=== PATIENT | male | born 1960 | race Caucasian/White ===

== ENCOUNTER 2019-11-10 19:51 | Emergency (ER) | payer OTHER ==
[2019-11-10] MEDS ORDERED: ONDANSETRON HCL 4 MG/2 ML VIAL ONE (20:25)
[2019-11-10] MEDS ORDERED: LEVOFLOXACIN 750 MG/D5W 150 ML 150 ML ONE (20:25)
[2019-11-10] MEDS ORDERED: MORPHINE SULFATE 4 MG/1ML SYG ONE (20:25)
[2019-11-10 20:50] LABS: APPEARANCE,URINE Clear (CLEAR); BILIRUBIN,URINE Negative (NEGATIVE); COLOR,URINE Yellow (YELLOW); GLUCOSE, URINE (UA) Negative (NEGATIVE); KETONES,URINE Negative (NEGATIVE); LEUKOCYTE ESTERASE ,URINE Negative (NEGATIVE); NITRATE,URINE Negative (NEGATIVE); OCCULT BLOOD,URINE Negative (NEGATIVE); PROTEIN,URINE POS 2+ mg/dL (NEGATIVE); UROBILINOGEN,URINE 0.2 mg/dL (0.2-1.0)
[2019-11-10 20:54] LABS: BASOPHILS % (AUTO) 0.4 % (0.0-5.0); EOSINOPHILS % (AUTO) 1.6 % (0.0-8.0); HEMATOCRIT 26.8 % (42-54); LYMPHOCYTES % (AUTO) 28.1 % (21.0-51.0); MEAN CORPUSCULAR HEMOGLOBIN 30.3 pg (27.0-33.0); MEAN CORPUSCULAR HGB CONC 33.6 g/dL (32.0-36.0); MEAN CORPUSCULAR VOLUME 90.2 fL (79-99); MONOCYTES % (AUTO) 10.4 % (3.0-13.0); NEUTROPHILS % (AUTO) 58.7 % (40.0-77.0); PLATELET COUNT (AUTO) 222 K/uL (130-400); RED BLOOD CELL COUNT(AUTO) 2.97 MIL/uL (4.50-6.20); RED CELL DISTRIBUTION WIDTH 16.7 % (11.0-15.5)
[2019-11-10 21:04] LABS: BACTERIA,URINE None Seen /HPF (None Seen); MUCUS,URINE Few LPF (None Seen); RBC,URINE 0-1 /HPF (0-1); SQUAMOUS EPITHELIAL CELL,UR 0-2 /HPF (0-2); WBC,URINE 0-1 /HPF (0-1)
[2019-11-10 21:08] LABS: ALBUMIN 2.6 g/dL (3.5-5.0); BILIRUBIN,TOTAL 0.7 mg/dL (0.2-1.0); CREATININE 2.1 mg/dL (0.5-1.5); TOTAL PROTEIN, SERUM 6.1 g/dL (6.0-8.3)
[2019-11-10 21:09] LABS: POTASSIUM 2.5 mmol/L (3.5-5.1)
[2019-11-10] MEDS ORDERED: POTASSIUM CHLORIDE 20 MEQ ERTAB PO ONE (21:14)
[2019-11-10 21:17] LABS: B-TYPE NATRIURETIC PEPTIDE 179 pg/mL (0-100)
[2019-11-10] MEDS ORDERED: ACETAMINOPHEN EXTRA STRENGTH 500 MG TABLET ONE (21:17)
== END 2019-11-10 23:05 | disposition home or self-care (01) ==
LOC: EDH 19:51
DX: E87.6 Hypokalemia (principal); R53.1 Weakness; R05 Cough; R06.02 Shortness of breath; Z20.828 Contact with and (suspected) exposure to other viral communicable diseases; N18.6 End stage renal disease; E03.9 Hypothyroidism, unspecified; Z88.1 Allergy status to other antibiotic agents
CPT/HCPCS: 36415; 71045; 80053; 81001; 83880; 85025; 87040 ×2; 87426; 96365; 96366; 96375; 99284; J1956; J2270; J2405; J7030; U0003

== ENCOUNTER 2019-11-27 17:28 | Emergency (ER) | payer OTHER | END 2019-11-27 23:45 | disposition home or self-care (01) | LOC: EDH 17:28 | DX: R07.89 Other chest pain (principal); R20.2 Paresthesia of skin; I10 Essential (primary) hypertension; E03.9 Hypothyroidism, unspecified; N18.6 End stage renal disease; Z87.891 Personal history of nicotine dependence; Z88.0 Allergy status to penicillin | CPT/HCPCS: 36415; 70450; 70544; 70547; 70551; 71045; 80053; 80305; 81001; 82550; 82948; 83721; 84484; 85025; 85610; 85730; 93005; 99291 ==

== ENCOUNTER 2019-12-24 10:17 | Emergency (ER) | payer OTHER ==
[2019-12-24 10:45] LABS: BASOPHILS % (AUTO) 0.4 % (0.0-5.0); EOSINOPHILS % (AUTO) 13.1 % (0.0-8.0); HEMATOCRIT 32.1 % (42-54); LYMPHOCYTES % (AUTO) 24.5 % (21.0-51.0); MEAN CORPUSCULAR HEMOGLOBIN 32.4 pg (27.0-33.0); MEAN CORPUSCULAR HGB CONC 34.6 g/dL (32.0-36.0); MEAN CORPUSCULAR VOLUME 93.6 fL (79-99); MONOCYTES % (AUTO) 7.7 % (3.0-13.0); NEUTROPHILS % (AUTO) 53.7 % (40.0-77.0); PLATELET COUNT (AUTO) 43 K/uL (130-400); RED BLOOD CELL COUNT(AUTO) 3.43 MIL/uL (4.50-6.20); RED CELL DISTRIBUTION WIDTH 15.4 % (11.0-15.5); WHITE BLOOD COUNT (AUTO) 4.7 K/uL (4.8-10.8)
[2019-12-24 10:55] LABS: CREATININE 2.3 mg/dL (0.5-1.5); POTASSIUM 3.3 mmol/L (3.5-5.1)
[2019-12-24 11:00] LABS: BILIRUBIN,TOTAL 0.5 mg/dL (0.2-1.0)
[2019-12-24 14:11] LABS: APPEARANCE,URINE Clear (CLEAR); BILIRUBIN,URINE Negative (NEGATIVE); COLOR,URINE Yellow (YELLOW); GLUCOSE, URINE (UA) Negative (NEGATIVE); KETONES,URINE Negative (NEGATIVE); LEUKOCYTE ESTERASE ,URINE Negative (NEGATIVE); NITRATE,URINE Negative (NEGATIVE); OCCULT BLOOD,URINE Negative (NEGATIVE); PH,URINE 6.5 (5.0-8.0); PROTEIN,URINE POS 2+ mg/dL (NEGATIVE)
[2019-12-24 14:34] LABS: BACTERIA,URINE None Seen /HPF (None Seen); RBC,URINE 0-1 /HPF (0-1); SQUAMOUS EPITHELIAL CELL,UR None Seen /HPF (0-2); WBC,URINE 0-1 /HPF (0-1)
[2019-12-24] MEDS ORDERED: POTASSIUM CHLORIDE 20 MEQ ERTAB PO ONE (16:48)
== END 2019-12-24 16:56 | disposition home or self-care (01) ==
LOC: EDH 10:17
DX: M79.10 Myalgia, unspecified site (principal); D69.59 Other secondary thrombocytopenia; C90.00 Multiple myeloma not having achieved remission; E03.9 Hypothyroidism, unspecified; N18.6 End stage renal disease; Z88.0 Allergy status to penicillin; Z88.8 Allergy status to other drugs, medicaments and biological substances
CPT/HCPCS: 36415; 70450; 71045; 80053; 81001; 83605; 85025; 86850; 86900; 86901

== ENCOUNTER 2020-02-10 11:59 | Inpatient (IN) | payer OTHER ==
[~2020-02-10] VITALS: Ht 177.8 cm; Wt 94.8 kg
[2020-02-10] MEDS ORDERED: ONDANSETRON HCL 4 MG/2 ML VIAL ONE (12:51)
[2020-02-10] MEDS ORDERED: HYDROMORPHONE HCL 0.5 MG/0.5 ML ML ONE (12:52)
[2020-02-10 13:16] LABS: APPEARANCE,URINE Clear (CLEAR); BILIRUBIN,URINE Negative (NEGATIVE); COLOR,URINE Yellow (YELLOW); GLUCOSE, URINE (UA) Negative (NEGATIVE); KETONES,URINE Negative (NEGATIVE); LEUKOCYTE ESTERASE ,URINE Negative (NEGATIVE); NITRATE,URINE Negative (NEGATIVE); OCCULT BLOOD,URINE Negative (NEGATIVE); PROTEIN,URINE POS 2+ mg/dL (NEGATIVE)
[2020-02-10 13:32] LABS: POTASSIUM 3.3 mmol/L (3.5-5.1)
[2020-02-10 13:36] LABS: BILIRUBIN,TOTAL 0.4 mg/dL (0.2-1.0)
[2020-02-10 13:37] LABS: BASOPHILS % (AUTO) 0.4 % (0.0-5.0); EOSINOPHILS % (AUTO) 5.6 % (0.0-8.0); HEMATOCRIT 29.6 % (42-54); LYMPHOCYTES % (AUTO) 26.3 % (21.0-51.0); MEAN CORPUSCULAR HEMOGLOBIN 33.2 pg (27.0-33.0); MEAN CORPUSCULAR HGB CONC 32.4 g/dL (32.0-36.0); MEAN CORPUSCULAR VOLUME 102.4 fL (79-99); MONOCYTES % (AUTO) 12.4 % (3.0-13.0); NEUTROPHILS % (AUTO) 54.6 % (40.0-77.0); PLATELET COUNT (AUTO) 109 K/uL (130-400); RED BLOOD CELL COUNT(AUTO) 2.89 MIL/uL (4.50-6.20); RED CELL DISTRIBUTION WIDTH 16.4 % (11.0-15.5); WHITE BLOOD COUNT (AUTO) 7.5 K/uL (4.8-10.8)
[2020-02-10 13:56] LABS: B-TYPE NATRIURETIC PEPTIDE 169 pg/mL (0-100)
[2020-02-10] MEDS ORDERED: ACETAMINOPHEN 325 MG TAB PO PRN (15:45)
[2020-02-10] MEDS ORDERED: ONDANSETRON HCL 4 MG/2 ML VIAL IVP PRN (15:45)
[2020-02-10] MEDS ORDERED: HYDROMORPHONE 1 MG/1 ML AMP ONE (16:14)
[2020-02-10] MEDS ORDERED: FENTANYL 50 MCG/HR PATCH TD SCH (18:00)
[2020-02-10] MEDS ORDERED: HYDRALAZINE HCL 20 MG/ML VIAL IV PRN (18:00)
[2020-02-10] MEDS ORDERED: POTASSIUM CHLORIDE 20 MEQ ERTAB PO SCH (18:45)
[2020-02-10] MEDS ORDERED: POTASSIUM CHLORIDE 10% ELIXIR 20 MEQ/15 ML UDCUP PO PRN (18:45)
[2020-02-10] MEDS ORDERED: POTASSIUM CHLORIDE 20MEQ/100ML 100 ML IV PRN (18:45)
[2020-02-10] MEDS ORDERED: POTASSIUM CHLORIDE 20 MEQ ERTAB PO PRN (18:45)
[2020-02-10] MEDS ORDERED: HYDROCODONE/ACETAMINOPHEN 5/325 MG TAB ONE ×2 (20:16→20:30)
[2020-02-10] MEDS ORDERED: FAMOTIDINE 20MG TAB 20 MG TAB ONE (20:16)
[2020-02-10] MEDS ORDERED: POTASSIUM CHLORIDE 20 MEQ ERTAB PO ONE (21:56)
[2020-02-10 22:10] VITALS: BP 136/84
[2020-02-10] MEDS: HYDROMORPHONE 1 MG/1 ML AMP IVP PRN (23:07)
--- NOTE | 2020-02-10 23:39 | NUR ---
PATIENT RECEIVED FROM ER, REPORT FROM JEREMIAS SALCIDO RN. PATIENT ADMITTED FOR INTRACTABLE BACK PAIN x 3 DAYS. PT ARRIVED TO ROOM , AMBULATED TO BED WITH A CANE, MINIMAL ASSISTANCE. PATIENT WAS WITH C/O PAIN TO LOWER BACK. REFER TO eMAR FOR INTERVENTION. PT ADMITTED, INSTRUCTED ON POC INVOLVING PAIN CONTROL. CALL [facility] PLACED WITHIN REACH, WILL CONT TO MONITOR CLOSELY. ASSESSMENT DOCUMENTED.
[2020-02-11] MEDS: HYDROCODONE/ACETAMINOPHEN 5/325 MG TAB PO PRN (02:27)
[2020-02-11 03:40] VITALS: BP 127/40
[2020-02-11] MEDS: HYDROMORPHONE 1 MG/1 ML AMP IVP PRN ×3 (06:17→20:50)
[2020-02-11] MEDS ORDERED: FENT-77 TD (06:33)
[2020-02-11] MEDS ORDERED: DEXA4TAB PO (06:33)
[2020-02-11] MEDS ORDERED: FERR-82 PO (06:33)
[2020-02-11] MEDS ORDERED: PANT40TA54 PO (06:33)
[2020-02-11] MEDS ORDERED: VITAMIN D3 PO (06:33)
[2020-02-11] MEDS ORDERED: LENA15CA PO (06:33)
[2020-02-11] MEDS ORDERED: MULT-1367 PO (06:33)
[2020-02-11] MEDS ORDERED: VITAMIN B12 PO (06:33)
[2020-02-11] MEDS ORDERED: HYDR-4153 PO (06:33)
[2020-02-11] MEDS ORDERED: POTA-9 PO (06:33)
[2020-02-11] MEDS ORDERED: RIVA20TA PO (06:33)
[2020-02-11] MEDS ORDERED: METO-391 PO (06:33)
[2020-02-11] MEDS ORDERED: FOLI1TAB61 PO (06:33)
[2020-02-11] MEDS ORDERED: THYR240T PO (06:33)
[2020-02-11] MEDS ORDERED: SERT100T12 PO (06:33)
[2020-02-11] MEDS ORDERED: GABA-529 PO (06:33)
[2020-02-11] MEDS ORDERED: MORP-108 PO (06:33)
[2020-02-11] MEDS ORDERED: COLC0.6T73 PO (06:33)
[2020-02-11 07:00] VITALS: BP 121/82
[2020-02-11] MEDS: FAMOTIDINE 20MG TAB 20 MG TAB PO SCH (08:52)
[2020-02-11 11:41] VITALS: BP 142/64
--- NOTE | 2020-02-11 11:49 | NUR ---
[facility] DC information support project manager met with pt discussed dc plans. Pt is independent prior to admission, lives at home with spouse. Pt has a cane, cane. Denies any other equipments/services. Feels safe to go back home, still works and drives, spouse able to assist with transportation and needs as necessary. Pt verbalized he sees Dr Milena manning/[facility] . DC plan to home once stable. CM to continue to follow up. Addendum: 02/11/20 at 1151 by DONNA NINO LVN CM Amended: Links added.
[2020-02-11] MEDS ORDERED: THYROID PORK 240 MG PO SCH (15:00)
[2020-02-11 16:00] VITALS: BP 139/58
[2020-02-11 20:00] VITALS: BP 124/70
[2020-02-11] MEDS: HYDRALAZINE HCL 25 MG TABLET PO SCH (20:52)
[2020-02-11 23:53] VITALS: BP 142/78
[2020-02-12] MEDS: HYDROMORPHONE 1 MG/1 ML AMP IVP PRN (03:46)
[2020-02-12 04:00] VITALS: BP 144/75
[2020-02-12 08:00] VITALS: BP 141/84
[2020-02-12] MEDS ORDERED: Vitamin B Complex/Vit C/Folic Acid PO SCH (09:00)
[2020-02-12] MEDS ORDERED: CYANOCOBALAMIN (VITAMIN B-12) 1,000 MCG TABLET PO SCH (09:00)
[2020-02-12] MEDS ORDERED: NON-FORMULARY MEDICATION 1 EACH (Multivitamin 1 EACH) PO SCH (09:00)
[2020-02-12] MEDS ORDERED: VITAMIN D 1000 UNIT PO SCH (09:00)
[2020-02-12] MEDS ORDERED: NON-FORMULARY MEDICATION 1 EACH (Ferrous Sulfate (Iron) 325 MG) PO SCH (09:00)
[2020-02-12] MEDS ORDERED: GABAPENTIN 100 MG CAPSULE PO SCH (09:00)
[2020-02-12] MEDS ORDERED: RIVAROXABAN 20 MG TABLET PO SCH (09:00)
[2020-02-12] MEDS ORDERED: FERROUS SULFATE 325 MG TABLET.DR PO SCH (09:00)
[2020-02-12] MEDS ORDERED: VITAMIN D3 1000 UNIT PO SCH (09:00)
[2020-02-12] MEDS ORDERED: NON-FORMULARY MEDICATION 1 EACH (Sertraline HCl 100 MG) PO SCH (09:00)
[2020-02-12] MEDS ORDERED: NON-FORMULARY MEDICATION 1 EACH ([Vitamin B12] 1,000 MCG) PO SCH (09:00)
[2020-02-12] MEDS ORDERED: METOPROLOL SUCCINATE 50 MG TAB.SR.24H PO SCH (09:00)
[2020-02-12] MEDS ORDERED: MULTIVITAMIN TABLET PO SCH (09:00)
[2020-02-12] MEDS ORDERED: PANTOPRAZOLE SODIUM 40 MG TABLET.DR PO SCH (09:00)
[2020-02-12] MEDS ORDERED: NON-FORMULARY MEDICATION 1 EACH (Vit B Cmplx 3/FA/Vit C/Biotin (Nephro-Vite Rx Tablet) 1 E PO SCH (09:00)
[2020-02-12] MEDS ORDERED: SERTRALINE HCL 50 MG TABLET PO SCH (09:00)
[2020-02-12] MEDS: HYDRALAZINE HCL 25 MG TABLET PO SCH (09:57)
[2020-02-12] MEDS: FAMOTIDINE 20MG TAB 20 MG TAB PO SCH (09:58)
[2020-02-12] MEDS: HYDROCODONE/ACETAMINOPHEN 5/325 MG TAB PO PRN (10:02)
[2020-02-12 12:00] VITALS: BP 127/77
--- NOTE | 2020-02-12 13:45 | NUR ---
DISCHARGE PATIENT GIVEN DISCHARGE INSTRUCTIONS VIA TEACH BACK. 20G PIV TO LEFT HAND DISCONTINUED, TIP INTACT. NO NEW RX GIVEN. PATIENT TO FOLLOW UP WITH DR. BOO 03/17/20 AT 1330 AND PCP IN 3 TO 5 DAYS. PATIENT TO CONTINUE WITH FENTANYL 50MCG PATCH AND MORPHINE 15MG PO Q3HR/PRN. PATIENT STABLE AT THIS TIME. [facility].
== END 2020-02-12 13:40 | disposition home or self-care (01) | DRG 948 ==
LOC: EDH 11:59 → EDHIP 15:34 → OBSVTOIN 15:34 → 3BH 21:05
PROVIDERS: ADMIT Hospitalist; ATTEND Hospitalist
DX: G89.3 Neoplasm related pain (acute) (chronic) (principal); N18.4 Chronic kidney disease, stage 4 (severe); C90.01 Multiple myeloma in remission; E87.6 Hypokalemia; I12.9 Hypertensive chronic kidney disease with stage 1 through stage 4 chronic kidney disease, or unspecified chronic kidney disease; D64.9 Anemia, unspecified; D69.6 Thrombocytopenia, unspecified; D70.9 Neutropenia, unspecified; E03.9 Hypothyroidism, unspecified; E11.22 Type 2 diabetes mellitus with diabetic chronic kidney disease; F11.10 Opioid abuse, uncomplicated; M54.5 Low back pain; M47.9 Spondylosis, unspecified; Z79.01 Long term (current) use of anticoagulants; Z80.1 Family history of malignant neoplasm of trachea, bronchus and lung; Z80.3 Family history of malignant neoplasm of breast; Z86.711 Personal history of pulmonary embolism; Z86.718 Personal history of other venous thrombosis and embolism; Z87.891 Personal history of nicotine dependence; Z92.21 Personal history of antineoplastic chemotherapy; Z88.0 Allergy status to penicillin; Z88.8 Allergy status to other drugs, medicaments and biological substances; Z83.3 Family history of diabetes mellitus; Z82.49 Family history of ischemic heart disease and other diseases of the circulatory system
CPT/HCPCS: 36415; 72148; 74176; 80053; 81003; 82550; 83605; 83690; 83880; 84484; 85025; 87040; 93005; G0378; J1170; J2405

== ENCOUNTER 2020-02-25 09:50 | Emergency (ER) | payer OTHER ==
[~2020-02-25 09:50] MED LIST: COLC0.6T73 PO; DEXA4TAB PO; FENT-77 TD; FERR-82 PO; FOLI1TAB61 PO; HYDR-4153 PO; LENA15CA PO; METO-391 PO; MULT-1367 PO; PANT40TA54 PO; POTA-9 PO; RIVA20TA PO; SERT100T12 PO; THYR240T PO; VITAMIN B12 PO; VITAMIN D3 PO
[2020-02-25 11:01] LABS: ALBUMIN 3.3 g/dL (3.5-5.0); BILIRUBIN,TOTAL 0.7 mg/dL (0.2-1.0); CREATININE 2.2 mg/dL (0.5-1.5); POTASSIUM 3.5 mmol/L (3.5-5.1); TOTAL PROTEIN, SERUM 6.7 g/dL (6.0-8.3)
[2020-02-25 11:02] LABS: BASOPHILS % (AUTO) 0.7 % (0.0-5.0); EOSINOPHILS % (AUTO) 2.4 % (0.0-8.0); HEMATOCRIT 33.8 % (42-54); LYMPHOCYTES % (AUTO) 21.8 % (21.0-51.0); MEAN CORPUSCULAR HEMOGLOBIN 32.7 pg (27.0-33.0); MEAN CORPUSCULAR HGB CONC 33.4 g/dL (32.0-36.0); MEAN CORPUSCULAR VOLUME 97.7 fL (79-99); MONOCYTES % (AUTO) 10.8 % (3.0-13.0); NEUTROPHILS % (AUTO) 63.9 % (40.0-77.0); PLATELET COUNT (AUTO) 92 K/uL (130-400); RED BLOOD CELL COUNT(AUTO) 3.46 MIL/uL (4.50-6.20); RED CELL DISTRIBUTION WIDTH 14.7 % (11.0-15.5); WHITE BLOOD COUNT (AUTO) 7.1 K/uL (4.8-10.8)
[2020-02-25 11:43] LABS: INR 1.14 (0.85-1.15); PARTIAL THROMBOPLASTIN TIME 32.2 SEC (26.3-35.5); PROTHROMBIN TIME 12.3 SEC (9.6-11.6)
[2020-02-25 13:56] LABS: APPEARANCE,URINE Clear (CLEAR); BILIRUBIN,URINE Small (NEGATIVE); COLOR,URINE Dark Yellow (YELLOW); GLUCOSE, URINE (UA) Negative (NEGATIVE); KETONES,URINE Trace mg/dL (NEGATIVE); LEUKOCYTE ESTERASE ,URINE Negative (NEGATIVE); NITRATE,URINE Negative (NEGATIVE); OCCULT BLOOD,URINE Negative (NEGATIVE); PH,URINE 6.5 (5.0-8.0); PROTEIN,URINE POS 2+ mg/dL (NEGATIVE)
[2020-02-25 14:08] LABS: BACTERIA,URINE Rare /HPF (None Seen); RBC,URINE 0-1 /HPF (0-1); SQUAMOUS EPITHELIAL CELL,UR Rare /HPF (0-2)
== END 2020-02-25 14:35 | disposition home or self-care (01) ==
LOC: EDH 09:50
DX: E86.0 Dehydration (principal); C90.00 Multiple myeloma not having achieved remission; N28.9 Disorder of kidney and ureter, unspecified; I12.0 Hypertensive chronic kidney disease with stage 5 chronic kidney disease or end stage renal disease; N18.6 End stage renal disease; E03.9 Hypothyroidism, unspecified; Z88.8 Allergy status to other drugs, medicaments and biological substances; Z88.0 Allergy status to penicillin; Z87.891 Personal history of nicotine dependence
CPT/HCPCS: 36415; 71045; 80053; 81001; 82550; 84484; 85025; 85610; 85730; 93005; 96360

== ENCOUNTER 2020-04-07 20:16 | Inpatient (IN) | payer OTHER ==
[~2020-04-07 20:16] MED LIST changes: +POTA-10 PO; -POTA-9 PO; +SERT-440 PO; -SERT100T12 PO
[2020-04-07 21:35] LABS: BASOPHILS % (AUTO) 0.2 % (0.0-5.0); EOSINOPHILS % (AUTO) 3.6 % (0.0-8.0); HEMATOCRIT 27.3 % (42-54); LYMPHOCYTES % (AUTO) 40.9 % (21.0-51.0); MEAN CORPUSCULAR HEMOGLOBIN 32.3 pg (27.0-33.0); MEAN CORPUSCULAR HGB CONC 33.7 g/dL (32.0-36.0); MEAN CORPUSCULAR VOLUME 95.8 fL (79-99); MONOCYTES % (AUTO) 10.2 % (3.0-13.0); NEUTROPHILS % (AUTO) 44.9 % (40.0-77.0); PLATELET COUNT (AUTO) 74 K/uL (130-400); RED BLOOD CELL COUNT(AUTO) 2.85 MIL/uL (4.50-6.20); RED CELL DISTRIBUTION WIDTH 13.9 % (11.0-15.5); WHITE BLOOD COUNT (AUTO) 4.4 K/uL (4.8-10.8)
[2020-04-07 21:41] LABS: CREATININE 2.4 mg/dL (0.5-1.5); POTASSIUM 3.6 mmol/L (3.5-5.1)
[2020-04-07 21:43] LABS: PROTHROMBIN TIME 10.7 SEC (9.6-11.6)
[2020-04-07 21:44] LABS: PARTIAL THROMBOPLASTIN TIME 26.2 SEC (26.3-35.5)
[2020-04-07 21:45] LABS: ALBUMIN 3.4 g/dL (3.5-5.0); BILIRUBIN,TOTAL 0.3 mg/dL (0.2-1.0); TOTAL PROTEIN, SERUM 6.8 g/dL (6.0-8.3)
[2020-04-07 21:52] LABS: B-TYPE NATRIURETIC PEPTIDE 71 pg/mL (0-100)
[2020-04-07] MEDS ORDERED: HYDROMORPHONE 1 MG INJ ONE (22:08)
[2020-04-08] MEDS ORDERED: HYDROMORPHONE 1 MG INJ ONE ×2 (01:41→05:53)
[2020-04-08] MEDS ORDERED: ONDANSETRON 4MG INJ IVP PRN (03:15)
[2020-04-08] MEDS ORDERED: ACETAMINOPHEN 650 MG SUPPOSITORY RC PRN (03:15)
[2020-04-08] MEDS ORDERED: HYDROMORPHONE 1 MG INJ IVP PRN (03:15)
[2020-04-08] MEDS ORDERED: ACETAMINOPHEN 325 MG TAB PO PRN (03:15)
[2020-04-08 07:31] LABS: BASOPHILS % (AUTO) 0.3 % (0.0-5.0); EOSINOPHILS % (AUTO) 5.2 % (0.0-8.0); HEMATOCRIT 25.9 % (42-54); MEAN CORPUSCULAR HEMOGLOBIN 31.5 pg (27.0-33.0); MEAN CORPUSCULAR HGB CONC 32.8 g/dL (32.0-36.0); MEAN CORPUSCULAR VOLUME 95.9 fL (79-99); MONOCYTES % (AUTO) 10.2 % (3.0-13.0); NEUTROPHILS % (AUTO) 33.3 % (40.0-77.0); PLATELET COUNT (AUTO) 61 K/uL (130-400); RED CELL DISTRIBUTION WIDTH 13.7 % (11.0-15.5); WHITE BLOOD COUNT (AUTO) 3.4 K/uL (4.8-10.8)
[2020-04-08 07:41] LABS: ALBUMIN 2.7 g/dL (3.5-5.0); BILIRUBIN,TOTAL 0.3 mg/dL (0.2-1.0); MAGNESIUM 1.6 mg/dL (1.80-2.40); POTASSIUM 3.5 mmol/L (3.5-5.1); TOTAL PROTEIN, SERUM 5.9 g/dL (6.0-8.3)
== END 2020-04-08 15:28 | disposition home or self-care (01) | DRG 947 ==
LOC: EDH 20:16 → EDHIP 23:20
PROVIDERS: ADMIT Internal Medicine Infectious Disease; ATTEND Internal Medicine Infectious Disease
DX: G89.3 Neoplasm related pain (acute) (chronic) (principal); N18.6 End stage renal disease; C90.00 Multiple myeloma not having achieved remission; I12.0 Hypertensive chronic kidney disease with stage 5 chronic kidney disease or end stage renal disease; D68.2 Hereditary deficiency of other clotting factors; E03.9 Hypothyroidism, unspecified; E66.9 Obesity, unspecified; Z88.0 Allergy status to penicillin; Z88.8 Allergy status to other drugs, medicaments and biological substances; Z86.718 Personal history of other venous thrombosis and embolism
CPT/HCPCS: 36415; 73552; 73718; 80053; 82550; 83735; 83880; 85025; 85610; 85730; 93971; G0378; J1170

== ENCOUNTER 2020-07-06 21:41 | Inpatient (IN) | payer OTHER ==
[~2020-07-06] VITALS: Ht 177.8 cm; Wt 94.3 kg
[2020-07-06] MEDS ORDERED: ONDANSETRON 4MG INJ ONE (22:15)
[2020-07-06] MEDS ORDERED: MORPHINE 4 MG SYG ONE (22:15)
[2020-07-06 22:50] LABS: BASOPHILS % (AUTO) 0.4 % (0.0-5.0); EOSINOPHILS % (AUTO) 0.1 % (0.0-8.0); HEMATOCRIT 23.8 % (42-54); LYMPHOCYTES % (AUTO) 32.5 % (21.0-51.0); MEAN CORPUSCULAR HEMOGLOBIN 32.4 pg (27.0-33.0); MEAN CORPUSCULAR HGB CONC 34.9 g/dL (32.0-36.0); MONOCYTES % (AUTO) 8.4 % (3.0-13.0); NEUTROPHILS % (AUTO) 57.9 % (40.0-77.0); PLATELET COUNT (AUTO) 36 K/uL (130-400); RED BLOOD CELL COUNT(AUTO) 2.56 MIL/uL (4.50-6.20); WHITE BLOOD COUNT (AUTO) 8.5 K/uL (4.8-10.8)
[2020-07-06 23:00] LABS: CREATININE 1.9 mg/dL (0.5-1.5); POTASSIUM 4.2 mmol/L (3.5-5.1)
[2020-07-06 23:04] LABS: ALBUMIN 3.2 g/dL (3.5-5.0); BILIRUBIN,TOTAL 0.3 mg/dL (0.2-1.0); INR 0.97 (0.85-1.15); PROTHROMBIN TIME 10.6 SEC (9.6-11.6); TOTAL PROTEIN, SERUM 6.4 g/dL (6.0-8.3)
[2020-07-06 23:05] LABS: PARTIAL THROMBOPLASTIN TIME 24.8 SEC (26.3-35.5)
[2020-07-07] MEDS ORDERED: HEPARIN 25,000 UNITS/250ML D5W 250 ML IV ONE ×2 (01:04→19:23)
[2020-07-07] MEDS ORDERED: HEPARIN 5,000 UNIT VIAL ONE ×2 (01:14→22:38)
[2020-07-07] MEDS ORDERED: MORPHINE 2 MG SYG ONE ×2 (01:50→07:59)
[2020-07-07 04:46] LABS: APPEARANCE,URINE Clear (CLEAR); BILIRUBIN,URINE Negative (NEGATIVE); COLOR,URINE Yellow (YELLOW); GLUCOSE, URINE (UA) Negative (NEGATIVE); KETONES,URINE Negative (NEGATIVE); LEUKOCYTE ESTERASE ,URINE Negative (NEGATIVE); NITRATE,URINE Negative (NEGATIVE); OCCULT BLOOD,URINE Negative (NEGATIVE); PROTEIN,URINE POS 1+ mg/dL (NEGATIVE); UROBILINOGEN,URINE 0.2 mg/dL (0.2-1.0)
[2020-07-07 05:20] LABS: BACTERIA,URINE Rare /HPF (None Seen); RBC,URINE 0-1 /HPF (0-1); WBC,URINE 0-1 /HPF (0-1)
[2020-07-07 07:40] LABS: BASOPHILS % (AUTO) 0.3 % (0.0-5.0); EOSINOPHILS % (AUTO) 0.2 % (0.0-8.0); HEMATOCRIT 23.9 % (42-54); LYMPHOCYTES % (AUTO) 34.2 % (21.0-51.0); MEAN CORPUSCULAR HEMOGLOBIN 31.6 pg (27.0-33.0); MEAN CORPUSCULAR HGB CONC 33.9 g/dL (32.0-36.0); MEAN CORPUSCULAR VOLUME 93.4 fL (79-99); MONOCYTES % (AUTO) 9.4 % (3.0-13.0); NEUTROPHILS % (AUTO) 54.9 % (40.0-77.0); PLATELET COUNT (AUTO) 32 K/uL (130-400); RED BLOOD CELL COUNT(AUTO) 2.56 MIL/uL (4.50-6.20); RED CELL DISTRIBUTION WIDTH 15.9 % (11.0-15.5)
[2020-07-07 07:55] LABS: INR 1.03 (0.85-1.15); PROTHROMBIN TIME 11.2 SEC (9.6-11.6)
[2020-07-07 07:56] LABS: PARTIAL THROMBOPLASTIN TIME 83.7 SEC (26.3-35.5)
[2020-07-07 07:57] LABS: ALBUMIN 2.8 g/dL (3.5-5.0); BILIRUBIN,TOTAL 0.3 mg/dL (0.2-1.0); CREATININE 1.6 mg/dL (0.5-1.5); MAGNESIUM 1.8 mg/dL (1.80-2.40); POTASSIUM 4.1 mmol/L (3.5-5.1); TOTAL PROTEIN, SERUM 5.7 g/dL (6.0-8.3)
[2020-07-07 09:43] LABS: PARTIAL THROMBOPLASTIN TIME 79.9 SEC (26.3-35.5)
[2020-07-07 10:04] LABS: PROTHROMBIN TIME 10.9 SEC (9.6-11.6)
[2020-07-07 10:26] VITALS: BP 115/58
[2020-07-07] MEDS: MORPHINE 2 MG SYG IVP PRN ×2 (13:21→22:04)
[2020-07-07] MEDS ORDERED: ACYC400T20 PO (15:29)
[2020-07-07] MEDS ORDERED: MAGN400T29 PO (15:29)
[2020-07-07] MEDS ORDERED: TAMS-1 PO (15:29)
[2020-07-07] MEDS ORDERED: FOLIC ACID 1MG PO (15:29)
[2020-07-07] MEDS ORDERED: URSO300C4 PO ×2 (15:29)
[2020-07-07] MEDS ORDERED: LEVO200T5 PO (15:29)
[2020-07-07] MEDS ORDERED: FENTANYL 50 MCG/HR PATCH TD SCH (15:30)
[2020-07-07 16:11] LABS: PROTHROMBIN TIME 10.9 SEC (9.6-11.6)
[2020-07-07 16:12] LABS: PARTIAL THROMBOPLASTIN TIME 50.1 SEC (26.3-35.5)
[2020-07-07 17:11] VITALS: BP 139/73
[2020-07-07 17:38] LABS: APPEARANCE,URINE Clear (CLEAR); BILIRUBIN,URINE Negative (NEGATIVE); COLOR,URINE Yellow (YELLOW); GLUCOSE, URINE (UA) Negative (NEGATIVE); KETONES,URINE Negative (NEGATIVE); LEUKOCYTE ESTERASE ,URINE Negative (NEGATIVE); NITRATE,URINE Negative (NEGATIVE); OCCULT BLOOD,URINE Negative (NEGATIVE); PROTEIN,URINE POS 2+ mg/dL (NEGATIVE); UROBILINOGEN,URINE 0.2 mg/dL (0.2-1.0)
[2020-07-07 17:45] LABS: BACTERIA,URINE Rare /HPF (None Seen); RBC,URINE 0-1 /HPF (0-1); SQUAMOUS EPITHELIAL CELL,UR Rare /HPF (0-2); WBC,URINE 0-1 /HPF (0-1)
[2020-07-07 20:20] VITALS: BP 142/80
[2020-07-07] MEDS: TAMSULOSIN HCL 0.4 MG CAP.ER.24H PO SCH (20:40)
[2020-07-07] MEDS: MAGNESIUM OXIDE 400 MG TABLET PO SCH (20:40)
[2020-07-07] MEDS: URSODIOL 300 MG CAPSULE PO SCH (20:40)
[2020-07-07] MEDS: ACYCLOVIR 200 MG CAPSULE PO SCH (20:40)
[2020-07-07 22:19] LABS: INR 0.98 (0.85-1.15); PROTHROMBIN TIME 10.7 SEC (9.6-11.6)
[2020-07-07 22:20] LABS: PARTIAL THROMBOPLASTIN TIME 40.1 SEC (26.3-35.5)
[2020-07-08] VITALS (7 sets, daily range): BP systolic 125–183; BP diastolic 76–87
[2020-07-08] MEDS: MORPHINE 2 MG SYG IVP PRN ×2 (01:53→20:30)
[2020-07-08] MEDS ORDERED: IOHEXOL 350 MG/ML 100ML INFUS..BTL IV ONE (01:55)
[2020-07-08 04:43] LABS: BASOPHILS % (AUTO) 0.6 % (0.0-5.0); EOSINOPHILS % (AUTO) 0.2 % (0.0-8.0); HEMATOCRIT 23.9 % (42-54); LYMPHOCYTES % (AUTO) 40.6 % (21.0-51.0); MEAN CORPUSCULAR HEMOGLOBIN 31.4 pg (27.0-33.0); MEAN CORPUSCULAR HGB CONC 33.5 g/dL (32.0-36.0); MEAN CORPUSCULAR VOLUME 93.7 fL (79-99); MONOCYTES % (AUTO) 10.9 % (3.0-13.0); NEUTROPHILS % (AUTO) 46.8 % (40.0-77.0); PLATELET COUNT (AUTO) 34 K/uL (130-400); RED BLOOD CELL COUNT(AUTO) 2.55 MIL/uL (4.50-6.20); RED CELL DISTRIBUTION WIDTH 15.8 % (11.0-15.5); WHITE BLOOD COUNT (AUTO) 5.3 K/uL (4.8-10.8)
[2020-07-08 05:07] LABS: CREATININE 1.7 mg/dL (0.5-1.5); MAGNESIUM 1.9 mg/dL (1.80-2.40); PHOSPHORUS 3.4 mg/dL (2.5-4.9); URIC ACID 4.9 mg/dL (2.6-7.2)
[2020-07-08] MEDS: LEVOTHYROXINE 100 MCG TABLET PO SCH (06:00)
[2020-07-08] MEDS: LEVOTHYROXINE 125 MCG TABLET PO SCH (06:00)
[2020-07-08] MEDS: Vitamin B Complex/Vit C/Folic Acid PO SCH (09:00)
[2020-07-08] MEDS: MAGNESIUM OXIDE 400 MG TABLET PO SCH ×2 (09:00→20:25)
[2020-07-08] MEDS ORDERED: Vitamin B Complex/Vit C/Folic Acid PO SCH (09:00)
[2020-07-08] MEDS: MULTIVITAMIN TABLET PO SCH (09:51)
[2020-07-08] MEDS: FOLIC ACID 1 MG TABLET PO SCH (09:51)
[2020-07-08] MEDS: ACYCLOVIR 200 MG CAPSULE PO SCH ×2 (09:51→20:25)
[2020-07-08] MEDS: URSODIOL 300 MG CAPSULE PO SCH ×2 (09:52→20:25)
[2020-07-08] MEDS: CYANOCOBALAMIN (VITAMIN B-12) 1,000 MCG TABLET PO SCH (09:52)
[2020-07-08] MEDS: POTASSIUM CHLORIDE 10MEQ SR TAB PO SCH (09:53)
[2020-07-08] MEDS: METOPROLOL SUCCINATE 50 MG TAB.SR.24H PO SCH (09:53)
[2020-07-08] MEDS: SERTRALINE HCL 50 MG TABLET PO SCH (09:53)
[2020-07-08] MEDS: PANTOPRAZOLE 40 MG TAB DR PO SCH (09:53)
[2020-07-08] MEDS: FERROUS SULFATE 325 MG TABLET.DR PO SCH (09:53)
[2020-07-08] MEDS: **HM**[Vitamin D3] 1,000 UNITS PO SCH (09:58)
[2020-07-08] MEDS ORDERED: RIVAROXABAN 20 MG TABLET PO SCH (13:00)
[2020-07-08] MEDS ORDERED: PHARMACY COMMUNICATION MISC SCH (13:00)
[2020-07-08 18:26] LABS: INR 1.17 (0.85-1.15); PROTHROMBIN TIME 12.6 SEC (9.6-11.6)
[2020-07-08 18:27] LABS: PARTIAL THROMBOPLASTIN TIME 32.3 SEC (26.3-35.5)
[2020-07-08] MEDS: TAMSULOSIN HCL 0.4 MG CAP.ER.24H PO SCH (20:24)
[2020-07-09] VITALS: BP 125/80
[2020-07-09 04:00] VITALS: BP 127/76
[2020-07-09 04:28] LABS: HEMATOCRIT 24.7 % (42-54); MEAN CORPUSCULAR HEMOGLOBIN 31.8 pg (27.0-33.0); MEAN CORPUSCULAR VOLUME 93.6 fL (79-99); RED BLOOD CELL COUNT(AUTO) 2.64 MIL/uL (4.50-6.20); RED CELL DISTRIBUTION WIDTH 16.2 % (11.0-15.5); WHITE BLOOD COUNT (AUTO) 5.5 K/uL (4.8-10.8)
[2020-07-09 04:49] LABS: CREATININE 1.9 mg/dL (0.5-1.5); PHOSPHORUS 3.6 mg/dL (2.5-4.9); POTASSIUM 4.3 mmol/L (3.5-5.1)
[2020-07-09] MEDS: LEVOTHYROXINE 125 MCG TABLET PO SCH (06:19)
[2020-07-09] MEDS: LEVOTHYROXINE 100 MCG TABLET PO SCH (06:19)
[2020-07-09 08:00] VITALS: BP 108/65
[2020-07-09] MEDS ORDERED: RIVAROXABAN 20 MG TABLET PO SCH (09:00)
[2020-07-09] MEDS: POTASSIUM CHLORIDE 10MEQ SR TAB PO SCH (10:13)
[2020-07-09] MEDS: MORPHINE 2 MG SYG IVP PRN (10:13)
[2020-07-09] MEDS: URSODIOL 300 MG CAPSULE PO SCH (10:14)
[2020-07-09] MEDS: FERROUS SULFATE 325 MG TABLET.DR PO SCH (10:15)
[2020-07-09] MEDS: CYANOCOBALAMIN (VITAMIN B-12) 1,000 MCG TABLET PO SCH (10:15)
[2020-07-09] MEDS: MAGNESIUM OXIDE 400 MG TABLET PO SCH (10:15)
[2020-07-09] MEDS: PANTOPRAZOLE 40 MG TAB DR PO SCH (10:15)
[2020-07-09] MEDS: MULTIVITAMIN TABLET PO SCH (10:15)
[2020-07-09] MEDS: METOPROLOL SUCCINATE 50 MG TAB.SR.24H PO SCH (10:15)
[2020-07-09] MEDS: Vitamin B Complex/Vit C/Folic Acid PO SCH (10:15)
[2020-07-09] MEDS: SERTRALINE HCL 50 MG TABLET PO SCH (10:15)
[2020-07-09] MEDS: ACYCLOVIR 200 MG CAPSULE PO SCH (10:16)
[2020-07-09] MEDS: **HM**[Vitamin D3] 1,000 UNITS PO SCH (10:16)
[2020-07-09] MEDS: FOLIC ACID 1 MG TABLET PO SCH (10:16)
[2020-07-09 12:00] VITALS: BP 136/71
== END 2020-07-09 14:30 | disposition home or self-care (01) | DRG 300 ==
LOC: EDH 21:41 → EDHIP 23:05 → 4BH 07-07 09:10
PROVIDERS: ADMIT Internal Medicine Infectious Disease; ATTEND Internal Medicine Infectious Disease
DX: I82.B11 Acute embolism and thrombosis of right subclavian vein (principal); C90.00 Multiple myeloma not having achieved remission; Z94.84 Stem cells transplant status; D68.51 Activated protein C resistance; D84.9 Immunodeficiency, unspecified; I82.C11 Acute embolism and thrombosis of right internal jugular vein; I12.9 Hypertensive chronic kidney disease with stage 1 through stage 4 chronic kidney disease, or unspecified chronic kidney disease; N18.9 Chronic kidney disease, unspecified; D69.6 Thrombocytopenia, unspecified; I51.3 Intracardiac thrombosis, not elsewhere classified; R53.81 Other malaise; M54.9 Dorsalgia, unspecified; R07.89 Other chest pain; E03.9 Hypothyroidism, unspecified; D64.9 Anemia, unspecified; E66.9 Obesity, unspecified; Z68.29 Body mass index [BMI] 29.0-29.9, adult; Z98.52 Vasectomy status; Z86.711 Personal history of pulmonary embolism; Z86.718 Personal history of other venous thrombosis and embolism; Z88.0 Allergy status to penicillin; Z88.8 Allergy status to other drugs, medicaments and biological substances
CPT/HCPCS: 36415; 71275; 80048; 80053; 81001; 82570; 83735; 83880; 84100; 84156; 84484; 84550; 85025; 85027; 85610; 85730; 86850; 86900; 86901; 93005; 93971; G0378; J1644; J2270; J2405; Q9967

== ENCOUNTER 2020-07-27 13:14 | Emergency (ER) | payer OTHER ==
[~2020-07-27 13:14] MED LIST changes: +ACYC400T20 PO; -COLC0.6T73 PO; -DEXA4TAB PO; +FOLIC ACID 1MG PO; -HYDR-4153 PO; -LENA15CA PO; +LEVO200T5 PO; +MAGN400T29 PO; -POTA-10 PO; +POTA-9 PO; +TAMS-1 PO; -THYR240T PO; +URSO300C4 PO
[2020-07-27 13:33] LABS: BASOPHILS % (AUTO) 0.2 % (0.0-5.0); EOSINOPHILS % (AUTO) 1.6 % (0.0-8.0); HEMATOCRIT 28.4 % (42-54); LYMPHOCYTES % (AUTO) 33.2 % (21.0-51.0); MEAN CORPUSCULAR HEMOGLOBIN 33.1 pg (27.0-33.0); MEAN CORPUSCULAR HGB CONC 33.8 g/dL (32.0-36.0); MEAN CORPUSCULAR VOLUME 97.9 fL (79-99); MONOCYTES % (AUTO) 7.5 % (3.0-13.0); NEUTROPHILS % (AUTO) 56.8 % (40.0-77.0); PLATELET COUNT (AUTO) 47 K/uL (130-400); RED CELL DISTRIBUTION WIDTH 18.6 % (11.0-15.5); WHITE BLOOD COUNT (AUTO) 5.6 K/uL (4.8-10.8)
[2020-07-27 13:42] LABS: CREATININE 2.4 mg/dL (0.5-1.5); POTASSIUM 4.3 mmol/L (3.5-5.1)
[2020-07-27 13:45] LABS: INR 1.39 (0.85-1.15); PROTHROMBIN TIME 14.7 SEC (9.6-11.6)
[2020-07-27 13:46] LABS: ALBUMIN 3.7 g/dL (3.5-5.0); BILIRUBIN,TOTAL 0.2 mg/dL (0.2-1.0); PARTIAL THROMBOPLASTIN TIME 38.5 SEC (26.3-35.5); TOTAL PROTEIN, SERUM 7.1 g/dL (6.0-8.3)
== END 2020-07-27 15:00 | disposition home or self-care (01) ==
LOC: EDH 13:14
DX: S00.83XA Contusion of other part of head, initial encounter (principal); D69.6 Thrombocytopenia, unspecified; D64.9 Anemia, unspecified; I12.0 Hypertensive chronic kidney disease with stage 5 chronic kidney disease or end stage renal disease; N18.6 End stage renal disease; E03.9 Hypothyroidism, unspecified; Z99.2 Dependence on renal dialysis; Z86.718 Personal history of other venous thrombosis and embolism; Z79.01 Long term (current) use of anticoagulants; Z88.0 Allergy status to penicillin; Z88.8 Allergy status to other drugs, medicaments and biological substances; W22.8XXA Striking against or struck by other objects, initial encounter; Y93.89 Activity, other specified; Y92.098 Other place in other non-institutional residence as the place of occurrence of the external cause; Y99.8 Other external cause status
CPT/HCPCS: 36415; 70450; 72125; 80053; 85025; 85610; 85730

== ENCOUNTER 2020-08-03 10:07 | Emergency (ER) | payer OTHER ==
[2020-08-03] MEDS ORDERED: KETOROLAC TROMETHAMINE 60 MG/2 ML VIAL ONE (10:41)
== END 2020-08-03 21:22 | disposition home or self-care (01) ==
LOC: EDH 10:07
DX: M76.52 Patellar tendinitis, left knee (principal); M79.662 Pain in left lower leg; N18.6 End stage renal disease; I12.0 Hypertensive chronic kidney disease with stage 5 chronic kidney disease or end stage renal disease; E03.9 Hypothyroidism, unspecified; Z88.0 Allergy status to penicillin; Z88.8 Allergy status to other drugs, medicaments and biological substances; Z87.891 Personal history of nicotine dependence; Z86.718 Personal history of other venous thrombosis and embolism
CPT/HCPCS: 29505; 73562; 96372; 99283; J1885

== ENCOUNTER 2020-08-22 18:32 | Emergency (ER) | payer OTHER ==
[2020-08-22] MEDS ORDERED: KETOROLAC TROMETHAMINE 60 MG/2 ML VIAL ONE (19:12)
[2020-08-22] MEDS ORDERED: DIAZEPAM 5 MG TABLET ONE (19:13)
[2020-08-23] MEDS ORDERED: LENA15CA PO (23:03)
[2020-08-23] MEDS ORDERED: HYDR-4153 PO (23:03)
[2020-08-23] MEDS ORDERED: GABA-529 PO (23:03)
[2020-08-23] MEDS ORDERED: COLC0.6C3 PO (23:03)
== END 2020-08-22 19:54 | disposition home or self-care (01) ==
LOC: EDH 18:32
DX: M54.5 Low back pain (principal); I12.0 Hypertensive chronic kidney disease with stage 5 chronic kidney disease or end stage renal disease; N18.6 End stage renal disease; E03.9 Hypothyroidism, unspecified; Z88.0 Allergy status to penicillin; Z88.8 Allergy status to other drugs, medicaments and biological substances; Z86.718 Personal history of other venous thrombosis and embolism
CPT/HCPCS: 72100; 96372; 99283; J1885

== ENCOUNTER 2020-08-23 14:22 | Observation (INO) | payer OTHER ==
[~2020-08-23] VITALS: Ht 177.8 cm; Wt 100.9 kg
[2020-08-23] MEDS ORDERED: SODIUM CHLORIDE 0.9% 500ML 500 ML IV ONE (14:57)
[2020-08-23 15:38] LABS: BASOPHILS % (AUTO) 0.2 % (0.0-5.0); EOSINOPHILS % (AUTO) 1.7 % (0.0-8.0); HEMATOCRIT 25.5 % (42-54); LYMPHOCYTES % (AUTO) 32.4 % (21.0-51.0); MEAN CORPUSCULAR HEMOGLOBIN 34.1 pg (27.0-33.0); MEAN CORPUSCULAR HGB CONC 32.9 g/dL (32.0-36.0); MEAN CORPUSCULAR VOLUME 103.7 fL (79-99); MONOCYTES % (AUTO) 11.7 % (3.0-13.0); NEUTROPHILS % (AUTO) 53.8 % (40.0-77.0); PLATELET COUNT (AUTO) 37 K/uL (130-400); RED BLOOD CELL COUNT(AUTO) 2.46 MIL/uL (4.50-6.20); RED CELL DISTRIBUTION WIDTH 15.3 % (11.0-15.5)
[2020-08-23] MEDS ORDERED: MORPHINE SULFATE 4 MG/1ML SYG ONE (15:44)
[2020-08-23] MEDS ORDERED: ONDANSETRON HCL 4 MG/2 ML VIAL ONE (15:44)
[2020-08-23 16:01] LABS: ALBUMIN 3.6 g/dL (3.5-5.0); BILIRUBIN,TOTAL 0.3 mg/dL (0.2-1.0); CREATININE 4.1 mg/dL (0.5-1.5); POTASSIUM 4.7 mmol/L (3.5-5.1); TOTAL PROTEIN, SERUM 6.5 g/dL (6.0-8.3)
[2020-08-23 17:13] LABS: B-TYPE NATRIURETIC PEPTIDE 185 pg/mL (0-100)
[2020-08-23 17:14] LABS: APPEARANCE,URINE Clear (CLEAR); BILIRUBIN,URINE Negative (NEGATIVE); COLOR,URINE Yellow (YELLOW); GLUCOSE, URINE (UA) Negative (NEGATIVE); KETONES,URINE Trace mg/dL (NEGATIVE); LEUKOCYTE ESTERASE ,URINE Negative (NEGATIVE); NITRATE,URINE Negative (NEGATIVE); OCCULT BLOOD,URINE Negative (NEGATIVE); PROTEIN,URINE Trace mg/dL (NEGATIVE)
[2020-08-23 17:48] LABS: BACTERIA,URINE Rare /HPF (None Seen); RBC,URINE 0-1 /HPF (0-1); SQUAMOUS EPITHELIAL CELL,UR Rare /HPF (0-2); WBC,URINE 0-1 /HPF (0-1)
[2020-08-23 17:49] LABS: HYALINE CASTS, URINE 0-1 /LPF (0-1 /LPF); MUCUS,URINE Rare LPF (None Seen); URIC ACID CRYSTALS,URINE Rare /LPF (None Seen)
[2020-08-23] MEDS ORDERED: TRAMADOL HCL 50 MG TABLET PO PRN (18:15)
[2020-08-23] MEDS ORDERED: ACETAMINOPHEN 325 MG TAB PO PRN (18:15)
[2020-08-23] MEDS: SODIUM CHLORIDE 0.9% 1000ML 1,000 ML IV SCH (18:15)
[2020-08-23] MEDS ORDERED: ONDANSETRON HCL 4 MG/2 ML VIAL IVP PRN (18:15)
[2020-08-23] MEDS ORDERED: SODIUM CHLORIDE 0.9% 1000ML 1,000 ML IV ONE (18:34)
[2020-08-23 22:30] VITALS: BP 134/67
[2020-08-23] MEDS ORDERED: GABA-529 PO (23:03)
[2020-08-23] MEDS ORDERED: COLC0.6C3 PO (23:03)
[2020-08-23] MEDS ORDERED: LENA15CA PO (23:03)
[2020-08-23] MEDS ORDERED: HYDR-4153 PO (23:03)
[2020-08-24 04:27] VITALS: BP 101/63
[2020-08-24 05:09] LABS: HEMATOCRIT 27.2 % (42-54); MEAN CORPUSCULAR HEMOGLOBIN 34.4 pg (27.0-33.0); MEAN CORPUSCULAR HGB CONC 33.1 g/dL (32.0-36.0); MEAN CORPUSCULAR VOLUME 103.8 fL (79-99); RED BLOOD CELL COUNT(AUTO) 2.62 MIL/uL (4.50-6.20); RED CELL DISTRIBUTION WIDTH 15.4 % (11.0-15.5); WHITE BLOOD COUNT (AUTO) 4.1 K/uL (4.8-10.8)
[2020-08-24 05:13] LABS: ALBUMIN 3.5 g/dL (3.5-5.0); BILIRUBIN,TOTAL 0.3 mg/dL (0.2-1.0); CREATININE 3.4 mg/dL (0.5-1.5); POTASSIUM 4.6 mmol/L (3.5-5.1); TOTAL PROTEIN, SERUM 6.3 g/dL (6.0-8.3); URIC ACID 8.5 mg/dL (2.6-7.2)
[2020-08-24 08:00] VITALS: BP 118/66
[2020-08-24] MEDS: PANTOPRAZOLE SODIUM 40 MG TABLET.DR PO SCH (09:29)
[2020-08-24] MEDS: SODIUM CHLORIDE 0.9% 1000ML 1,000 ML IV SCH ×2 (09:29→13:38)
[2020-08-24 11:59] VITALS: BP 104/57
[2020-08-24 16:00] VITALS: BP 111/51
[2020-08-24 20:00] VITALS: BP 100/60
[2020-08-25 00:14] VITALS: BP 117/71
[2020-08-25 01:17] LABS: APPEARANCE,URINE Clear (CLEAR); BILIRUBIN,URINE Negative (NEGATIVE); COLOR,URINE Yellow (YELLOW); GLUCOSE, URINE (UA) Negative (NEGATIVE); KETONES,URINE Negative (NEGATIVE); LEUKOCYTE ESTERASE ,URINE Negative (NEGATIVE); NITRATE,URINE Negative (NEGATIVE); OCCULT BLOOD,URINE Negative (NEGATIVE); PH,URINE 5.5 (5.0-8.0); PROTEIN,URINE Negative (NEGATIVE); UROBILINOGEN,URINE 0.2 mg/dL (0.2-1.0)
[2020-08-25] MEDS: SODIUM CHLORIDE 0.9% 1000ML 1,000 ML IV SCH (03:33)
[2020-08-25 04:00] VITALS: BP 107/67
[2020-08-25 04:18] LABS: EOSINOPHILS % (AUTO) 1.7 % (0.0-8.0); HEMATOCRIT 25.2 % (42-54); LYMPHOCYTES % (AUTO) 46.2 % (21.0-51.0); MEAN CORPUSCULAR HEMOGLOBIN 34.9 pg (27.0-33.0); MEAN CORPUSCULAR HGB CONC 33.3 g/dL (32.0-36.0); MEAN CORPUSCULAR VOLUME 104.6 fL (79-99); MONOCYTES % (AUTO) 8.7 % (3.0-13.0); NEUTROPHILS % (AUTO) 43.1 % (40.0-77.0); PLATELET COUNT (AUTO) 31 K/uL (130-400); RED BLOOD CELL COUNT(AUTO) 2.41 MIL/uL (4.50-6.20); WHITE BLOOD COUNT (AUTO) 3.5 K/uL (4.8-10.8)
[2020-08-25 04:34] LABS: CREATININE 2.6 mg/dL (0.5-1.5); MAGNESIUM 1.7 mg/dL (1.80-2.40); PHOSPHORUS 2.7 mg/dL (2.5-4.9); POTASSIUM 4.1 mmol/L (3.5-5.1); URIC ACID 7.8 mg/dL (2.6-7.2)
[2020-08-25] MEDS: PANTOPRAZOLE SODIUM 40 MG TABLET.DR PO SCH (08:19)
[2020-08-25 08:41] VITALS: BP 116/58
[2020-08-25 11:00] VITALS: BP 124/64
== END 2020-08-25 12:15 | disposition home or self-care (01) ==
LOC: EDH 14:22 → EDHIP 17:40 → 4AH 22:37
PROVIDERS: ADMIT Internal Medicine Nephrology; ATTEND Internal Medicine Nephrology
DX: N17.9 Acute kidney failure, unspecified (principal); Z20.822 Contact with and (suspected) exposure to COVID-19; I12.9 Hypertensive chronic kidney disease with stage 1 through stage 4 chronic kidney disease, or unspecified chronic kidney disease; N18.4 Chronic kidney disease, stage 4 (severe); E86.0 Dehydration; E03.9 Hypothyroidism, unspecified; D61.818 Other pancytopenia; C90.00 Multiple myeloma not having achieved remission; D68.4 Acquired coagulation factor deficiency; E78.5 Hyperlipidemia, unspecified; D70.9 Neutropenia, unspecified; D64.9 Anemia, unspecified; Z86.718 Personal history of other venous thrombosis and embolism; Z92.21 Personal history of antineoplastic chemotherapy; Z90.79 Acquired absence of other genital organ(s); Z86.711 Personal history of pulmonary embolism; Z87.891 Personal history of nicotine dependence; Z94.84 Stem cells transplant status; Z94.81 Bone marrow transplant status; Z79.899 Other long term (current) drug therapy; Z88.8 Allergy status to other drugs, medicaments and biological substances; Z88.0 Allergy status to penicillin
CPT/HCPCS: 36415 ×3; 71045; 74176; 76770; 80048; 80053 ×2; 81001; 81003; 83735; 83880; 84100 ×2; 84484; 84550 ×2; 85025 ×2; 85027; 87426; 96360; 96361 ×2; 99291; G0378 ×42; J2270; J2405; J7030 ×2; J7040; U0003

== ENCOUNTER 2021-07-19 14:54 | Emergency (ER) | payer OTHER ==
[~2021-07-19] VITALS: Ht 177.8 cm; Wt 98.9 kg
[~2021-07-19 14:54] MED LIST changes: +GABA-529 PO; +LENA15CA PO; +POTA-10 PO; -POTA-9 PO
[2021-07-19 15:52] LABS: BASOPHILS % (AUTO) 0.4 % (0.0-5.0); EOSINOPHILS % (AUTO) 3.9 % (0.0-8.0); HEMATOCRIT 32.7 % (42-54); LYMPHOCYTES % (AUTO) 49.7 % (21.0-51.0); MEAN CORPUSCULAR HEMOGLOBIN 30.9 pg (27.0-33.0); MEAN CORPUSCULAR VOLUME 93.7 fL (79-99); MONOCYTES % (AUTO) 8.4 % (3.0-13.0); NEUTROPHILS % (AUTO) 37.2 % (40.0-77.0); PLATELET COUNT (AUTO) 75 K/uL (130-400); RED BLOOD CELL COUNT(AUTO) 3.49 MIL/uL (4.50-6.20); RED CELL DISTRIBUTION WIDTH 15.3 % (11.0-15.5); WHITE BLOOD COUNT (AUTO) 4.7 K/uL (4.8-10.8)
[2021-07-19] MEDS ORDERED: PROMETHAZINE HCL 25 MG/ML 1ML AMPULE IM ONE (16:00)
[2021-07-19] MEDS ORDERED: 0.9% NACL 500ML IV.SOLN 500 ML IV SCH (16:00)
[2021-07-19] MEDS ORDERED: GUAIFENESIN-CODEINE 5 ML SYRUP PO ONE (16:00)
[2021-07-19 16:03] LABS: CREATININE 2.1 mg/dL (0.5-1.5); POTASSIUM 3.1 mmol/L (3.5-5.1)
[2021-07-19 16:10] LABS: BILIRUBIN,TOTAL 0.5 mg/dL (0.2-1.0); TOTAL PROTEIN, SERUM 6.6 g/dL (6.0-8.3)
[2021-07-19 16:58] VITALS: BP 143/71
[2021-07-19] MEDS ORDERED: OSELTAMIVIR PHOSPHATE 75 MG CAP PO SCH (17:00)
[2021-07-19] MEDS ORDERED: POTASSIUM BICARB/CIT AC 25 MEQ TABLET.EFF PO ONE (17:00)
[2021-07-19] MEDS ORDERED: [UNRECOGNIZED DRUG - CODE] PO (17:02)
[2021-07-19] MEDS ORDERED: OSEL75 PO (17:03)
[2021-07-19] MEDS ORDERED: OSELTAMIVIR PHOSPHATE 75 MG CAP ONE (17:11)
== END 2021-07-19 17:00 | disposition home or self-care (01) ==
LOC: EDH 14:54
DX: J10.1 Influenza due to other identified influenza virus with other respiratory manifestations (principal); R05.9 Cough, unspecified; Z20.822 Contact with and (suspected) exposure to COVID-19; I10 Essential (primary) hypertension; Z88.0 Allergy status to penicillin; Z79.899 Other long term (current) drug therapy; Z88.8 Allergy status to other drugs, medicaments and biological substances; Z98.890 Other specified postprocedural states
CPT/HCPCS: 36415; 71045; 80053; 84484; 85025; 87635; 87804 ×2; 96360; 96372; 99284; C9803; J2550

== ENCOUNTER 2021-12-25 10:36 | Emergency (ER) | payer OTHER ==
[~2021-12-25] VITALS: Ht 175.3 cm; Wt 95.3 kg
[~2021-12-25 10:36] MED LIST changes: +OSEL75 PO; -POTA-10 PO; +POTA-200 PO; +[UNRECOGNIZED DRUG - CODE] PO
[2021-12-25 15:54] VITALS: BP 122/66
== END 2021-12-25 15:56 | disposition home or self-care (01) ==
LOC: EDH 10:36
DX: R51.9 Headache, unspecified (principal); M54.50 Low back pain, unspecified; I10 Essential (primary) hypertension; Z88.0 Allergy status to penicillin; Z94.84 Stem cells transplant status; Z79.899 Other long term (current) drug therapy; W01.0XXA Fall on same level from slipping, tripping and stumbling without subsequent striking against object, initial encounter; Y93.89 Activity, other specified; Y92.89 Other specified places as the place of occurrence of the external cause; Y99.8 Other external cause status
CPT/HCPCS: 70450; 72100; 72125; 93005

== ENCOUNTER 2022-01-04 10:24 | Emergency (ER) | payer OTHER ==
[~2022-01-04] VITALS: Ht 175.3 cm; Wt 94.8 kg
[2022-01-04] MEDS ORDERED: MORPHINE 4 MG SYG IM ONE (11:00)
[2022-01-04] MEDS ORDERED: MORPHINE 4 MG SYG IVP ONE (11:30)
[2022-01-04 11:34] LABS: BASOPHILS % (AUTO) 0.9 % (0.0-5.0); EOSINOPHILS % (AUTO) 1.5 % (0.0-8.0); HEMATOCRIT 39.1 % (42-54); LYMPHOCYTES % (AUTO) 59.7 % (21.0-51.0); MEAN CORPUSCULAR HEMOGLOBIN 30.7 pg (27.0-33.0); MEAN CORPUSCULAR HGB CONC 34.8 g/dL (32.0-36.0); MEAN CORPUSCULAR VOLUME 88.3 fL (79-99); MONOCYTES % (AUTO) 7.2 % (3.0-13.0); NEUTROPHILS % (AUTO) 30.4 % (40.0-77.0); PLATELET COUNT (AUTO) 112 K/uL (130-400); RED BLOOD CELL COUNT(AUTO) 4.43 MIL/uL (4.50-6.20); RED CELL DISTRIBUTION WIDTH 13.6 % (11.0-15.5); WHITE BLOOD COUNT (AUTO) 6.8 K/uL (4.8-10.8)
[2022-01-04 11:48] LABS: INR 1.22 (0.85-1.15); PROTHROMBIN TIME 13.1 SEC (9.6-11.6)
[2022-01-04 11:49] LABS: CARBON DIOXIDE 20 mmol/L (21-32); CHLORIDE 107 mmol/L (101-111); CREATININE 2.1 mg/dL (0.5-1.5); GLOMERULAR FILTR. RATE CALC 34 mL/min (>60); GLUCOSE,RANDOM 94 mg/dL (70-105); PARTIAL THROMBOPLASTIN TIME 34.9 SEC (26.3-35.5); POTASSIUM 3.9 mmol/L (3.5-5.1); SODIUM SERUM 139 mmol/L (136-145); UREA NITROGEN, BLOOD 16 mg/dL (7-18)
[2022-01-04 11:54] LABS: ALANINE AMINOTRANSFERASE 14 U/L (12-78); ALBUMIN 3.7 g/dL (3.5-5.0); ASPARTATE AMINOTRANSFERASE 20 U/L (10-37); TOTAL PROTEIN, SERUM 7.7 g/dL (6.0-8.3)
[2022-01-04 11:58] LABS: CRP QUANTITATIVE < 2.00 mg/L (0.00-9.0)
[2022-01-04] MEDS ORDERED: ORPHENADRINE CITRATE 30 MG/ML ML IVP ONE (12:30)
[2022-01-04] MEDS ORDERED: KETOROLAC 30MG VIAL (30MG/ML) IVP ONE (12:30)
[2022-01-04] MEDS ORDERED: CYCL10TA16 PO (14:47)
[2022-01-04 15:18] VITALS: BP 112/78
== END 2022-01-04 15:31 | disposition home or self-care (01) ==
LOC: EDH 10:24
DX: S32.059A Unspecified fracture of fifth lumbar vertebra, initial encounter for closed fracture (principal); M54.41 Lumbago with sciatica, right side; Z20.822 Contact with and (suspected) exposure to COVID-19; I10 Essential (primary) hypertension; Z88.0 Allergy status to penicillin; Z88.8 Allergy status to other drugs, medicaments and biological substances; Z79.899 Other long term (current) drug therapy; Z98.890 Other specified postprocedural states; W19.XXXA Unspecified fall, initial encounter; Y93.89 Activity, other specified; Y92.89 Other specified places as the place of occurrence of the external cause; Y99.8 Other external cause status
CPT/HCPCS: 99284; 96374; 72131; 96375; 87635; 80053; 85025; 85610; 85730; 87804 ×2; 86140; 36415; C9803; J2270; J1885; J2360

== ENCOUNTER 2022-05-22 13:50 | Emergency (ER) | payer OTHER ==
[~2022-05-22] VITALS: Ht 175.3 cm; Wt 95.7 kg
[~2022-05-22 13:50] MED LIST changes: +CYCL10TA16 PO
[2022-05-22] MEDS ORDERED: 0.9% NACL 500ML IV.SOLN 500 ML IV ONE (17:30)
[2022-05-22] MEDS ORDERED: ONDANSETRON 4MG INJ IVP ONE (17:30)
[2022-05-22] MEDS ORDERED: MORPHINE 4 MG SYG IVP ONE (17:30)
[2022-05-22 17:32] LABS: BASOPHILS % (AUTO) 0.4 % (0.0-5.0); EOSINOPHILS % (AUTO) 2.5 % (0.0-8.0); HEMATOCRIT 39.5 % (42-54); LYMPHOCYTES % (AUTO) 50.9 % (21.0-51.0); MEAN CORPUSCULAR HEMOGLOBIN 31.8 pg (27.0-33.0); MEAN CORPUSCULAR HGB CONC 34.2 g/dL (32.0-36.0); MEAN CORPUSCULAR VOLUME 92.9 fL (79-99); MONOCYTES % (AUTO) 5.3 % (3.0-13.0); NEUTROPHILS % (AUTO) 38.6 % (40.0-77.0); PLATELET COUNT (AUTO) 103 K/uL (130-400); RED BLOOD CELL COUNT(AUTO) 4.25 MIL/uL (4.50-6.20); WHITE BLOOD COUNT (AUTO) 5.3 K/uL (4.8-10.8)
[2022-05-22 17:47] LABS: CREATININE 2.3 mg/dL (0.5-1.5); POTASSIUM 3.9 mmol/L (3.5-5.1)
[2022-05-22 17:52] LABS: ALBUMIN 3.6 g/dL (3.5-5.0)
[2022-05-22 18:30] VITALS: BP 122/60
== END 2022-05-22 18:48 | disposition home or self-care (01) ==
LOC: EDH 13:50
DX: G89.29 Other chronic pain (principal); M54.50 Low back pain, unspecified; M54.2 Cervicalgia; M54.6 Pain in thoracic spine; R06.02 Shortness of breath; I10 Essential (primary) hypertension; Z88.0 Allergy status to penicillin; Z88.8 Allergy status to other drugs, medicaments and biological substances; Z79.899 Other long term (current) drug therapy; Z98.890 Other specified postprocedural states
CPT/HCPCS: 99285; 72125; 96374; 71045; 96375; 84484; 80053; 85025; 36415; 72131; 72128; 74176; 93005; J7040; J2405; J2270; 96361

== ENCOUNTER 2022-08-02 06:27 | Emergency (ER) | payer OTHER ==
[~2022-08-02] VITALS: Ht 177.8 cm; Wt 95.3 kg
[~2022-08-02 06:27] MED LIST changes: -ACYC400T20 PO; +FENT12PAT TD; -FERR-82 PO; -GABA-529 PO; -OSEL75 PO; -TAMS-1 PO; -URSO300C4 PO; -[UNRECOGNIZED DRUG - CODE] PO
[2022-08-02 06:47] VITALS: BP 123/68
[2022-08-02 08:08] LABS: BASOPHILS % (AUTO) 0.7 % (0.0-5.0); EOSINOPHILS % (AUTO) 3.2 % (0.0-8.0); HEMATOCRIT 32.3 % (42-54); LYMPHOCYTES % (AUTO) 49.1 % (21.0-51.0); MEAN CORPUSCULAR HGB CONC 34.4 g/dL (32.0-36.0); MEAN CORPUSCULAR VOLUME 90.2 fL (79-99); MONOCYTES % (AUTO) 8.1 % (3.0-13.0); NEUTROPHILS % (AUTO) 38.4 % (40.0-77.0); PLATELET COUNT (AUTO) 105 K/uL (130-400); RED BLOOD CELL COUNT(AUTO) 3.58 MIL/uL (4.50-6.20); RED CELL DISTRIBUTION WIDTH 13.1 % (11.0-15.5); WHITE BLOOD COUNT (AUTO) 4.4 K/uL (4.8-10.8)
[2022-08-02 08:13] LABS: APPEARANCE,URINE CLOUDY (CLEAR); BILIRUBIN,URINE NEGATIVE (NEGATIVE); COLOR,URINE COLORLESS (YELLOW); GLUCOSE, URINE (UA) NEGATIVE (NEGATIVE); KETONES,URINE NEGATIVE (NEGATIVE); LEUKOCYTE ESTERASE ,URINE 500 Leu/uL (NEGATIVE); NITRATE,URINE NEGATIVE (NEGATIVE); OCCULT BLOOD,URINE LARGE (NEGATIVE); PH,URINE 6.5 (5.0-8.0); PROTEIN,URINE 200 mg/dL (NEGATIVE); UROBILINOGEN,URINE 0.2 mg/dL (0.2-1.0)
[2022-08-02 08:20] LABS: BACTERIA,URINE MOD /HPF (None Seen); MUCUS,URINE RARE LPF (None Seen); RBC,URINE 51-100 /HPF (0-1); WBC,URINE TNTC /HPF (0-1)
[2022-08-02 08:24] LABS: CREATININE 2.8 mg/dL (0.5-1.5)
[2022-08-02 08:45] LABS: POTASSIUM 3.3 mmol/L (3.5-5.1)
[2022-08-02 08:55] LABS: ALBUMIN 2.8 g/dL (3.5-5.0); TOTAL PROTEIN, SERUM 7.6 g/dL (6.0-8.3); URIC ACID 7.6 mg/dL (2.6-7.2)
[2022-08-02] MEDS ORDERED: TRAM50TA4 PO (08:57)
[2022-08-02] MEDS ORDERED: LIDOP TP (08:57)
== END 2022-08-02 09:15 | disposition home or self-care (01) ==
LOC: EDH 06:27
DX: M25.561 Pain in right knee (principal); E03.9 Hypothyroidism, unspecified; I12.9 Hypertensive chronic kidney disease with stage 1 through stage 4 chronic kidney disease, or unspecified chronic kidney disease; N18.4 Chronic kidney disease, stage 4 (severe); Z79.01 Long term (current) use of anticoagulants; Z79.61 Long term (current) use of immunomodulator; Z79.899 Other long term (current) drug therapy; Z88.0 Allergy status to penicillin
CPT/HCPCS: 36415; 73564; 80053; 81001; 84550; 85025; 87077; 87088; 87186

== ENCOUNTER 2022-10-31 17:57 | Emergency (ER) | payer OTHER ==
[~2022-10-31] VITALS: Ht 177.8 cm; Wt 96.6 kg
[~2022-10-31 17:57] MED LIST changes: +LIDOP TP; +TRAM50TA4 PO
[2022-10-31 18:36] LABS: HEMATOCRIT 34.4 % (42-54); MEAN CORPUSCULAR HEMOGLOBIN 31.4 pg (27.0-33.0); MEAN CORPUSCULAR HGB CONC 34.3 g/dL (32.0-36.0); MEAN CORPUSCULAR VOLUME 91.5 fL (79-99); PLATELET COUNT (AUTO) 83 K/uL (130-400); RED BLOOD CELL COUNT(AUTO) 3.76 MIL/uL (4.50-6.20); RED CELL DISTRIBUTION WIDTH 13.7 % (11.0-15.5); WHITE BLOOD COUNT (AUTO) 7.5 K/uL (4.8-10.8)
[2022-10-31 18:49] LABS: INR 0.94 (0.85-1.15); PROTHROMBIN TIME 10.9 SEC (9.6-11.6)
[2022-10-31 18:50] LABS: CREATININE 2.7 mg/dL (0.5-1.5); PARTIAL THROMBOPLASTIN TIME 33.4 SEC (26.3-35.5); POTASSIUM 4.4 mmol/L (3.5-5.1)
[2022-10-31 19:26] LABS: EOSINOPHILS % (MANUAL) 2 % (1-6); LYMPHOCYTES % (MANUAL) 42 % (22-44); MAN.DIFF COMMENT-IMPRESSION MANUAL DIFFERENTIAL; MONOCYTES % (MANUAL) 6 % (2-9); SEGMENTED NEUTROPHILS % 50 % (40-70)
[2022-10-31 19:27] LABS: PLATELET MORPHOLOGY COMMENT DECREASED
[2022-10-31 19:29] VITALS: BP 131/68; PULSE 59; RESP 18; O2SAT 97
== END 2022-10-31 19:52 | disposition home or self-care (01) ==
LOC: EDH 17:57
DX: S09.90XA Unspecified injury of head, initial encounter (principal); E03.9 Hypothyroidism, unspecified; I12.9 Hypertensive chronic kidney disease with stage 1 through stage 4 chronic kidney disease, or unspecified chronic kidney disease; N18.4 Chronic kidney disease, stage 4 (severe); Z79.01 Long term (current) use of anticoagulants; Z79.61 Long term (current) use of immunomodulator; Z79.899 Other long term (current) drug therapy; Z88.0 Allergy status to penicillin; W18.09XA Striking against other object with subsequent fall, initial encounter; Y93.89 Activity, other specified; Y92.89 Other specified places as the place of occurrence of the external cause; Y99.8 Other external cause status
CPT/HCPCS: 36415; 70460; 72125; 80048; 85025; 85610; 85730

== ENCOUNTER 2023-03-20 04:01 | Emergency (ER) | payer OTHER ==
[~2023-03-20] VITALS: Ht 180.3 cm; Wt 95.3 kg
[2023-03-20 04:23] LABS: RAPID GROUP A STREP negative (NEGATIVE)
[2023-03-20 04:28] LABS: SARS-CoV-2, RNA, NAAT NEGATIVE SARS CoV-2 (NEGATIVE)
[2023-03-20 04:33] LABS: INFLUENZA TYPE A Negative For Type A (NEGATIVE); INFLUENZA TYPE B Negative For Type B (NEGATIVE)
[2023-03-20] MEDS ORDERED: BENZ-39 PO (05:36)
[2023-03-20] MEDS ORDERED: ALBUHFA IH (05:36)
[2023-03-20 05:45] VITALS: BP 131/85; PULSE 56; RESP 19; O2SAT 96
== END 2023-03-20 05:46 | disposition home or self-care (01) ==
LOC: EDH 04:01
DX: J20.8 Acute bronchitis due to other specified organisms (principal); B34.9 Viral infection, unspecified; I10 Essential (primary) hypertension; E03.9 Hypothyroidism, unspecified; Z79.61 Long term (current) use of immunomodulator; Z79.899 Other long term (current) drug therapy; Z88.0 Allergy status to penicillin; Z20.822 Contact with and (suspected) exposure to COVID-19
CPT/HCPCS: 99284; 87635; 87880; 87804 ×2; 93005; C9803

== ENCOUNTER 2023-12-07 12:50 | Inpatient (IN) | payer OTHER ==
[~2023-12-07] VITALS: Ht 177.8 cm; Wt 96.7 kg
[~2023-12-07 12:50] MED LIST changes: +APIX5TAB PO; +COLC0.6C3 PO; +HYDR-3421 PO; -LENA15CA PO; +LENA5CAP PO; +LEVO200C2 PO; -LEVO200T5 PO; +LEVO50CA4 PO; -LIDOP TP; -MAGN400T29 PO; +NALO4SPR5 NS; +OLOD4MIS2 IH; -POTA-200 PO; +PREG50CA64 PO; -RIVA20TA PO; +SERT150C PO; -TRAM50TA4 PO; +TRAZ150T79 PO; -VITAMIN D3 PO
[2023-12-07 13:32] LABS: BASOPHILS # (AUTO) 0.01 K/uL (0.00-0.20); BASOPHILS % (AUTO) 0.2 % (0.0-5.0); EOSINOPHILS # (AUTO) 0.09 K/uL (0.00-0.70); EOSINOPHILS % (AUTO) 1.9 % (0.0-8.0); HEMATOCRIT 32.3 % (42-54); IMMATURE GRANULOCYTE ABSOLUTE 0.05 K/uL (0-1); LYMPHOCYTES # (AUTO) 1.8 K/uL (1.0-4.8); LYMPHOCYTES % (AUTO) 37.1 % (21.0-51.0); MEAN CORPUSCULAR HEMOGLOBIN 30.8 pg (27.0-33.0); MEAN CORPUSCULAR HGB CONC 34.1 g/dL (32.0-36.0); MEAN CORPUSCULAR VOLUME 90.5 fL (79-99); MONOCYTES # (AUTO) 0.2 K/uL (0.1-1.0); MONOCYTES % (AUTO) 4.7 % (3.0-13.0); NEUTROPHILS # (AUTO) 2.6 K/uL (1.8-7.7); PLATELET COUNT (AUTO) 71 K/uL (130-400); RED BLOOD CELL COUNT(AUTO) 3.57 MIL/uL (4.50-6.20); RED CELL DISTRIBUTION WIDTH 14.4 % (11.0-15.5); WHITE BLOOD COUNT (AUTO) 4.7 K/uL (4.8-10.8)
[2023-12-07 13:39] LABS: CREATININE 2.5 mg/dL (0.5-1.3); POTASSIUM 3.7 mmol/L (3.5-5.1)
[2023-12-07 13:52] LABS: APPEARANCE,URINE CLEAR (CLEAR); BILIRUBIN,URINE NEGATIVE (NEGATIVE); COLOR,URINE LIGHT-YELLOW (YELLOW); GLUCOSE, URINE (UA) NEGATIVE (NEGATIVE); KETONES,URINE NEGATIVE (NEGATIVE); LEUKOCYTE ESTERASE ,URINE NEGATIVE Leu/uL (NEGATIVE); NITRATE,URINE NEGATIVE (NEGATIVE); OCCULT BLOOD,URINE NEGATIVE (NEGATIVE); PH,URINE 5.5 (5.0-8.0); PROTEIN,URINE 30 mg/dL (NEGATIVE); UROBILINOGEN,URINE 0.2 mg/dL (0.2-1.0)
[2023-12-07 13:54] LABS: ADD UA MICROSCOPIC YES
[2023-12-07 13:54] LABS: B-TYPE NATRIURETIC PEPTIDE 95 pg/mL (0-100)
[2023-12-07 14:00] LABS: ALBUMIN 3.2 g/dL (3.5-5.0); BILIRUBIN,DIRECT 0.2 mg/dL (0.0-0.3); BILIRUBIN,TOTAL 0.6 mg/dL (0.2-1.0); MAGNESIUM 1.9 mg/dL (1.80-2.40); TOTAL PROTEIN, SERUM 5.8 g/dL (6.0-8.3)
[2023-12-07 14:00] LABS: MUCUS,URINE RARE LPF (None Seen); RBC,URINE 0-1 /HPF (0-1)
[2023-12-07 16:53] LABS: THYROID STIMULATING HORMONE 1.34 uIU/mL (0.36-3.74)
[2023-12-07 17:03] LABS: ABG BASE EXCESS -7.2 mmol/L (-2.0-3.0); ABG HCO3 17.3 mmol/L (21.0-28.0); ABG OXYGEN SATURATION 94.3 % (94.0-98.0); ABG PCO2 32 mmHg (35-48); ABG PH 7.345 (7.350-7.450); DEVICE COMMENT RR VERONICA; PO2, ARTERIAL BG 73.9 mmHg (83.0-108.0); VENT MODE, BG RA (ROOM AIR)
[2023-12-07] MEDS: levoFLOXacin 500 MG/D5W 100 ML 100 ML IV ONE (17:14)
[2023-12-07] MEDS: 0.9%NACL 1000ML 500 ML IV ONE (17:14)
[2023-12-07 17:44] VITALS: O2SAT 98
[2023-12-07 17:45] VITALS: BP 124/72; PULSE 61; RESP 18; TEMP 98.4
[2023-12-07 20:00] VITALS: BP 98/53; PULSE 60; RESP 20; TEMP 98.2; O2SAT 97
[2023-12-08] VITALS (8 sets, daily range): BP systolic 99–135; BP diastolic 51–78; PULSE 59–76; RESP 20; TEMP 97.7–98.6; O2SAT 97
[2023-12-08 05:05] LABS: EOSINOPHILS # (AUTO) 0.06 K/uL (0.00-0.70); EOSINOPHILS % (AUTO) 1.6 % (0.0-8.0); HEMATOCRIT 31.3 % (42-54); IMMATURE GRANULOCYTE ABSOLUTE 0.04 K/uL (0-1); LYMPHOCYTES # (AUTO) 1.6 K/uL (1.0-4.8); LYMPHOCYTES % (AUTO) 44.5 % (21.0-51.0); MEAN CORPUSCULAR HEMOGLOBIN 31.5 pg (27.0-33.0); MEAN CORPUSCULAR HGB CONC 33.9 g/dL (32.0-36.0); MEAN CORPUSCULAR VOLUME 92.9 fL (79-99); MONOCYTES # (AUTO) 0.3 K/uL (0.1-1.0); MONOCYTES % (AUTO) 6.9 % (3.0-13.0); NEUTROPHILS # (AUTO) 1.7 K/uL (1.8-7.7); NEUTROPHILS % (AUTO) 45.9 % (40.0-77.0); PLATELET COUNT (AUTO) 77 K/uL (130-400); RED BLOOD CELL COUNT(AUTO) 3.37 MIL/uL (4.50-6.20); RED CELL DISTRIBUTION WIDTH 14.5 % (11.0-15.5); WHITE BLOOD COUNT (AUTO) 3.6 K/uL (4.8-10.8)
[2023-12-08 05:18] LABS: CREATININE 2.3 mg/dL (0.5-1.3); POTASSIUM 3.9 mmol/L (3.5-5.1)
[2023-12-08] MEDS: PANTOPRAZOLE 40 MG/VIAL IVP SCH (08:17)
[2023-12-08] MEDS ORDERED: LENA5CAP PO (08:38)
[2023-12-08] MEDS ORDERED: RIVA20TA PO (08:38)
[2023-12-08] MEDS: metOPROLol sucCINATE 50 MG TAB.SR.24H PO SCH (09:00)
[2023-12-08] MEDS: RIVAROXABAN 20 MG TABLET PO SCH (09:00)
[2023-12-08] MEDS ORDERED: NALOXONE HCL 4 MG NASAL SCH (09:30)
[2023-12-08] MEDS: levoFLOXacin 250 MG/D5W 50ML 50 ML IVPB SCH (17:03)
[2023-12-08] MEDS: pregABALin 25 MG CAP PO SCH (21:15)
[2023-12-09 03:43] VITALS: BP 135/71; PULSE 59; RESP 22; TEMP 98.1
[2023-12-09 05:38] LABS: BASOPHILS # (AUTO) 0.01 K/uL (0.00-0.20); BASOPHILS % (AUTO) 0.3 % (0.0-5.0); EOSINOPHILS % (AUTO) 2.6 % (0.0-8.0); HEMATOCRIT 31.6 % (42-54); IMMATURE GRANULOCYTE ABSOLUTE 0.07 K/uL (0-1); LYMPHOCYTES % (AUTO) 51.8 % (21.0-51.0); MEAN CORPUSCULAR HEMOGLOBIN 31.2 pg (27.0-33.0); MEAN CORPUSCULAR HGB CONC 34.2 g/dL (32.0-36.0); MEAN CORPUSCULAR VOLUME 91.3 fL (79-99); MONOCYTES # (AUTO) 0.3 K/uL (0.1-1.0); MONOCYTES % (AUTO) 7.3 % (3.0-13.0); NEUTROPHILS # (AUTO) 1.4 K/uL (1.8-7.7); NEUTROPHILS % (AUTO) 36.2 % (40.0-77.0); PLATELET COUNT (AUTO) 81 K/uL (130-400); RED BLOOD CELL COUNT(AUTO) 3.46 MIL/uL (4.50-6.20); RED CELL DISTRIBUTION WIDTH 14.5 % (11.0-15.5); WHITE BLOOD COUNT (AUTO) 3.9 K/uL (4.8-10.8)
[2023-12-09] MEDS: levoTHYROxine 50 MCG TABLET PO SCH (06:06)
[2023-12-09] MEDS: levoTHYROxine 100 MCG TABLET PO SCH (06:06)
[2023-12-09 06:09] LABS: CREATININE 2.3 mg/dL (0.5-1.3); POTASSIUM 4.2 mmol/L (3.5-5.1)
[2023-12-09 06:24] LABS: % IRON SATURATION 24.1 % (30-44)
[2023-12-09 08:00] VITALS: BP 126/70; PULSE 55; RESP 18; TEMP 97.9
[2023-12-09 08:15] VITALS: O2SAT 98
[2023-12-09] MEDS: LENALIDOMIDE 5 MG PO SCH (08:39)
[2023-12-09] MEDS: SERTraline HCL 50 MG TABLET PO SCH (08:39)
[2023-12-09] MEDS: CYANOCOBALAMIN (VITAMIN B-12) 1,000 MCG TABLET PO SCH (08:40)
[2023-12-09] MEDS: OLODATEROL HCL IH SCH (08:40)
[2023-12-09] MEDS: PANTOPRAZOLE 40 MG TAB DR PO SCH (08:41)
[2023-12-09] MEDS: FERROUS SULFATE 325 MG TABLET.DR PO SCH (09:55)
[2023-12-09 12:00] VITALS: BP 132/71; PULSE 54; RESP 18; TEMP 98.1
[2023-12-09] MEDS ORDERED: FERR324T4 PO (13:17)
[2023-12-09] MEDS ORDERED: LEVO-70 PO (13:17)
[2023-12-10] MEDS ORDERED: metOPROLol sucCINATE 25 MG TAB.SR.24H PO SCH (09:00)
== END 2023-12-09 14:25 | disposition home or self-care (01) | DRG 603 ==
LOC: EDH 12:50 → EDHIP 16:11 → 4CH 17:45 → 4BH 19:33
PROVIDERS: ADMIT Internal Medicine; ATTEND Internal Medicine
DX: L03.116 Cellulitis of left lower limb (principal); N17.9 Acute kidney failure, unspecified; N18.4 Chronic kidney disease, stage 4 (severe); C90.00 Multiple myeloma not having achieved remission; D61.818 Other pancytopenia; M62.82 Rhabdomyolysis; D84.9 Immunodeficiency, unspecified; Z94.84 Stem cells transplant status; L03.115 Cellulitis of right lower limb; I12.9 Hypertensive chronic kidney disease with stage 1 through stage 4 chronic kidney disease, or unspecified chronic kidney disease; D69.59 Other secondary thrombocytopenia; E03.9 Hypothyroidism, unspecified; M54.50 Low back pain, unspecified; G89.29 Other chronic pain; E66.9 Obesity, unspecified; I80.02 Phlebitis and thrombophlebitis of superficial vessels of left lower extremity; Z86.718 Personal history of other venous thrombosis and embolism; Z88.0 Allergy status to penicillin; Z79.01 Long term (current) use of anticoagulants; Z68.30 Body mass index [BMI] 30.0-30.9, adult; Z88.8 Allergy status to other drugs, medicaments and biological substances; Z79.899 Other long term (current) drug therapy
CPT/HCPCS: 36415; 36600; 70450; 71045; 72131; 72146; 72148; 73521; 76770; 80048; 80076; 81001; 82550; 82803; 83036; 83540; 83550; 83605; 83735; 83880; 84145; 84443; 84484; 85025; 86140; 93005; 93970; G0378; J1956; J2470

== ENCOUNTER 2024-04-07 12:30 | Emergency (ER) | payer OTHER ==
[~2024-04-07] VITALS: Ht 180.3 cm; Wt 94.8 kg
[~2024-04-07 12:30] MED LIST changes: -APIX5TAB PO; -COLC0.6C3 PO; -CYCL10TA16 PO; -FENT12PAT TD; +FERR324T4 PO; -FOLI1TAB61 PO; -HYDR-3421 PO; +LEVO-70 PO; +NALO4SPR22 NS; -NALO4SPR5 NS; -PANT40TA54 PO; +RIVA20TA PO; -SERT-440 PO
--- NOTE | 2024-04-07 12:42 | ERN ---
ED Note History of Present Illness Stated Complaint: SOB Chief Complaint: Shortness of Breath Time Seen by MD: 12:37 Dictation: PATIENT IS A 63 YEAR OLD RETIRED COMING FROM [place] [facility] WITH COMPLAINTS SHORTNESS A BREATH WITH THE EXERTIONAL DYSPNEA HE HAS HAD FOR TWO WEEKS. NO FEVER NO CHILLS NO NAUSEA VOMITING. DENIES HISTORY OF CAD, DOES STATE HE HAS CHRONIC KIDNEY DISEASE STAGE 4 SEES . Allergies: Coded Allergies: Penicillins (Unverified Allergy, Unknown, 11/11/19) rosuvastatin (Unverified Allergy, Unknown, 12/24/19) Home Meds Active Scripts Levofloxacin (Levofloxacin) 500 Mg Tablet, 500 MG PO DAILY for 5 Days, #5 TAB Prov:CYRIL DELGADILLO 12/09/23 Ferrous Sulfate (Ferrous Sulfate) 324 Mg (65 Mg Iron) Tablet.dr, 325 MG PO DAILY, #30 TAB 1 Refill Prov:CYRIL DELGADILLO 12/09/23 Reported Medications Lenalidomide (Revlimid) 5 Mg Capsule, 5 MG PO DAILY, CAP 12/08/23 Rivaroxaban (Xarelto) 20 Mg Tablet, 20 MG PO DAILY, TAB 12/08/23 Naloxone HCl (Naloxone HCl) 4 Mg/Actuation [place], 4 MG NS AD, SPRAY 10/06/23 Lenalidomide (Lenalidomide) 5 Mg Capsule, 5 MG PO DAILY, CAP 10/06/23 Olodaterol HCl (Striverdi Respimat) 2.5 Mcg/Actuation Mist.inhal, 2 PUFF IH DAILY 10/06/23 Trazodone HCl (Trazodone HCl) 150 Mg Tablet, 75 MG PO HSPRN, TAB 10/06/23 Sertraline HCl (Sertraline HCl) 150 Mg Capsule, 150 MG PO DAILY, CAP 10/06/23 Levothyroxine Sodium (Levothyroxine) 50 Mcg Capsule, 50 MCG PO ACBKFST, CAP 10/06/23 Levothyroxine Sodium (Levothyroxine) 200 Mcg Capsule, 200 MCG PO ACBKFST, CAP 10/06/23 Pregabalin (Pregabalin) 50 Mg Capsule, 50 MG PO BID, CAP 10/06/23 [Folic Acid 1MG] No Conflict Check, 1 MG PO DAILY 07/07/20 Multivitamin (Multivitamin) 1 Each Tablet, 1 EACH PO DAILY, TAB 02/11/20 Fentanyl (Fentanyl) 1 Each Patch.td72, 50 MCG TD Q72H 02/11/20 [Vitamin B12] No Conflict Check, 1000 MCG PO DAILY 02/11/20 Metoprolol Succinate (Metoprolol Succinate) 50 Mg Tab.er.24h, 25 MG PO DAILY, TAB 02/11/20 Past Medical History Past Medical History: COPD, Heart Disease, Hypertension, Other Additional Past Medical Hx: CKD IV, MULTIPLE MYELOMA, Surgical History: Other Surgical History Other: NECK SX Family History: Negative Social History: Negative RN Note Reviewed/Agreed w/PFSH: Yes Review of System Dictation CONSTITUTIONAL: NEGATIVE EXCEPT FOR HPI HEAD/FACE: NEGATIVE EXCEPT FOR HPI EENT: NEGATIVE EXCEPT FOR HPI RESPIRATORY: NEGATIVE EXCEPT FOR HPI SOB ON EXERTION GASTROINTESTINAL/ABDOMINAL: NEGATIVE EXCEPT FOR HPI GENITOURINARY: NEGATIVE EXCEPT FOR HPI MUSCULOSKELETAL: NEGATIVE EXCEPT FOR HPI INTEGUMENTARY: NEGATIVE EXCEPT FOR HPI NEUROLOGICAL/PSYCH: NEGATIVE EXCEPT FOR HPI HEMATOLOGIC/LYMPHATIC: NEGATIVE EXCEPT FOR HPI ALL SYSTEMS NEGATIVE, EXCEPT NOTED ABOVE. 13 POINT REVIEW OF SYSTEMS ASSESSED AND ALL NEGATIVE EXCEPT FOR ABOVE. Initial Vital Sign VS Vital Signs Date Time Temp Pulse Resp B/P (MAP) Pulse Ox O2 Delivery O2 Flow Rate FiO2 04/07/24 12:35 97.2 59 18 128/80 96 Room Air 0 04/07/24 12:39 21 Physical Exam Dictation VITAL SIGNS REVIEWED GENERAL APPEARANCE: ALERT, ORIENTED X 3, NO ACUTE DISTRESS, WELL DEVELOPED, NOURISHED. OBESE HEAD AND FACE: NON-TRAUMATIC. EYES: PERRL, PINK CONJUNCTIVAS, EYELID NO TRAUMA, ANTERIOR CHAMBER WITH ARCUS SENILIS. EARS: PINNAS INTACT AND NO SIGNS OF TRAUMA OR ERYTHEMA EAR CANALS CLEAR AND NO DISCHARGE TM NO ERYTHEMA NOSE: NO DISCHARGE, NO BLEEDING. OROPHARYNX: MOUTH NORMAL, TONGUE PINK, PHARYNX CLEAR,NO ERYTHEMA, TONSILS NO EXUDATES, NO ABSCESSES NOTED, MUCOUS MEMBRANE MOIST NECK: SUPPLE, NON-TENDER, NO THYROMEGALY, NO MASSES, NO JVD, NO BRUITS BREAST:DEFERRED CHEST:NO TENDERNESS, NO CREPITUS, NO PARADOXICAL MOVEMENT, NO RETRACTIONS LUNGS:CLEAR, WELL-VENTILATED, SYMMETRIC, NO RALES, NO WHEEZING, NO RHONCHI, NO STRIDOR, GOOD BREATH SOUNDS BILATERALLY NO TACHYPNEA OR RETRACTIONS HEART: REGULAR RATE, REGULAR RHYTHM, NO MURMUR, NO GALLOPS VASCULAR: TRACE PERIPHERAL EDEMA BILATERAL LOWER EXTREMITIES TO ANKLE, ABDOMEN: SOFT, POSITIVE BOWEL SOUNDS, NONDISTENDED, NO GUARDING, NONTENDER, NO REBOUND, NO MASSES NO HEPATOMEGALY, NO SPLENOMEGALY, NO CORDON'S SIGN, NO HERNIAS. RECTAL: DEFERRED GENITAL: DEFERRED NEUROLOGICAL: NORMAL SPEECH, MOTOR FUNCTION INTACT, SENSORY FUNCTION INTACT MUSCULOSKELETAL: NECK NONTENDER, FULL RANGE OF MOTION, BACK NONTENDER, FULL R JESSICA OF MOTION, EXTREMITIES: NONTENDER, FULL RANGE OF MOTION SKIN: COLOR PINK, DRY, NO TURGOR, NO RASH, NO LACERATIONS, NO ABRASIONS, NO CONTUSIONS. LYMPHATIC: DEFERRED Results (Laboratory/Radiology) Laboratory/Radiology Laboratory Tests Test 04/07/24 13:17 04/07/24 13:33 04/07/24 14:17 White Blood Count 4.8 K/uL (4.8-10.8) Red Blood Count 3.78 MIL/uL (4.50-6.20) L Hemoglobin 11.7 g/dL (14.0-18.0) L Hematocrit 34.7 % (42-54) L Mean Corpuscular Volume 91.8 fL (79-99) Mean Corpuscular Hemoglobin 31.0 pg (27.0-33.0) Mean Corpuscular Hemoglobin Concent 33.7 g/dL (32.0-36.0) Red Cell Distribution Width 15.0 % (11.0-15.5) Platelet Count 108 K/uL (130-400) L Mean Platelet Volume 9.6 fL (7.5-10.5) Immature Granulocyte % (Auto) 0.2 % (0-1) Neutrophils (%) (Auto) 37.0 % (40.0-77.0) L Lymphocytes (%) (Auto) 52.2 % (21.0-51.0) H Monocytes (%) (Auto) 5.8 % (3.0-13.0) Eosinophils (%) (Auto) 3.5 % (0.0-8.0) Basophils (%) (Auto) 1.3 % (0.0-5.0) Neutrophils # (Auto) 1.8 K/uL (1.8-7.7) Lymphocytes # (Auto) 2.5 K/uL (1.0-4.8) Monocytes # (Auto) 0.3 K/uL (0.1-1.0) Eosinophils # (Auto) 0.17 K/uL (0.00-0.70) Basophils # (Auto) 0.06 K/uL (0.00-0.20) Absolute Immature Granulocyte (auto 0.01 K/uL (0-1) Nucleated Red Blood Cells 0.0 % (0.0-0.19) Sodium Level 144 mmol/L (136-145) Potassium Level 4.1 mmol/L (3.5-5.1) Chloride Level 111 mmol/L (101-111) Carbon Dioxide Level 26 mmol/L (21-32) Blood Urea Nitrogen 17 mg/dL (7-18) Creatinine 2.3 mg/dL (0.5-1.3) H Glomerular Filtration Rate Calc 31 mL/min (>90) Random Glucose 122 mg/dL (70-105) H Total Calcium 8.2 mg/dL (8.5-10.1) L Magnesium Level 1.80 mg/dL (1.80-2.40) Troponin I High Sensitivity 7 ng/L (4-75) B-Type Natriuretic Peptide 30 pg/mL (0-100) SARS-CoV-2 Antigen (Rapid) PRESUMPTIVE NEGATIVE Urine Color LIGHT-YELLOW (YELLOW) Urine Appearance CLEAR (CLEAR) Urine pH 5.5 (5.0-8.0) Urine Specific [place] 1.020 (1.001-1.031) Urine Protein 50 mg/dL (NEGATIVE) H Urine Glucose (UA) NEGATIVE mg/dL (NEGATIVE) Urine Ketones NEGATIVE mg/dL (NEGATIVE) Urine Occult Blood NEGATIVE (NEGATIVE) Urine Nitrate NEGATIVE (NEGATIVE) Urine Bilirubin NEGATIVE mg/dL (NEGATIVE) Urine Urobilinogen 0.2 mg/dL (0.2-1.0) Urine Leukocyte Esterase NEGATIVE Rohit/uL Urine RBC 0-1 /HPF (0-1) Urine WBC 0-1 /HPF (0-1) Urine Squamous Epithelial Cells RARE /HPF (0-2) Urine Bacteria None /HPF (None Seen) REASON: SHORTNESS A BREATH COMPARISON: 12/07/2023 FINDINGS: Single view of the chest was obtained. Lungs are clear. Heart size is normal. There is no pulmonary vascular congestion. Mediastinum and bony thorax appear unremarkable. IMPRESSION: 1. Normal single view chest x-ray. Labs Reviewed?: Yes EKG Comment: [facility] Test Date: 2024-04-07 Test Time: 12:56:50 Pat Name: TERESA KRUEGER Department: ED Room: Gender: Male Bar Catcher: [id number] : [id number] Requested By: RYLIE AMBROCIO Order Number: [id number] Reading MD: Measurements Intervals Shushan Rate: 56 P: 57 MT: 177 QRS: -3 QRSD: 99 T: 31 QT: 449 QTc: 433 Interpretive Statements Sinus rhythm Please click the below link to view image of tracing. ED Course ED Course Orders Procedure Category Date Status Time Urinalysis Profile LAB 04/07/24 Complete 12:40 Covid19 (Sars Antigen LAB 04/07/24 Complete Rapid) 12:40 Cbc With Differential LAB 04/07/24 Complete 12:40 B-Type Natriuretic LAB 04/07/24 Complete Peptide 12:40 Chest 1vw RAD 04/07/24 Resulted 12:40 12 Lead Ekg Tracing- EKG 04/07/24 Complete Technical 12:40 Magnesium LAB 04/07/24 Complete 12:40 Troponin I High LAB 04/07/24 Complete Sensitivity 12:40 Basic Metabolic Panel LAB 04/07/24 Complete 12:40 Vital Signs Date Time Temp Pulse Resp B/P (MAP) Pulse Ox O2 Delivery O2 Flow Rate FiO2 04/07/24 15:00 97.5 51 18 136/75 96 Room Air* 0 21 04/07/24 13:40 97.2 59 18 132/77 96 Room Air* 0 21 04/07/24 12:39 97.2 59 18 128/80 96 Room Air* 0 21 04/07/24 12:35 97.2 59 18 128/80 96 Room Air 0 FIFTEEN 50, PATIENT WILL BE DISCHARGED HOME WITH STAGE 3 CHRONIC KIDNEY DISEASE THIS REPRESENTS NO CHANGE FROM A HISTORIC REVIEW OF THE CHART. CHEST X-RAY IS CLEAR EKG NORMAL FOR PATIENT NO ELEVATED TROPONIN NO ANEMIA HEART Score Response (Comments) Value History: Low suspicion (0) 0 Age: 45-65yrs (+1) 1 Risk Factors: 1-2 risk factors (+1) 1 Initial Troponin: Normal limit (0) 0 Total 2 Medical Decision Making MDM MDM: DIFFERENTIAL DIAGNOSIS: CHRONIC KIDNEY DISEASE, FLUID OVERL OAD/PNEUMONIA/BRONCHITIS/PLEURAL EFFUSION/CHF/ELECTROLYTE IMBALANCE/DEHYDRATION/SARS RATIONALE: TESTS CONSIDERED AND ORDERED SECONDARY TO SHARED DECISION MAKING INCLUDE: EKG/LABS/RADIOLOGY PREVIOUS OUTSIDE RECORDS REVIEWED: OLD ER VISITS. REVIEWED RISK OF COMPLICATION AND/OR MORBIDITY OR MORTALITY OF PATIENT MANAGEMENT: NONE MEDICATIONS-PER MEDICATION RECONCILIATION NEED FOR HOSPITALIZATION: PATIENT DOES NOT MEET CRITERIA FOR HOSPITALIZATION. NO NEED FOR EMERGENCY MAJOR/MINOR SURGERY: NO THERE ARE NO SOCIAL CONCERNS WITH THIS PATIENT. PRESCRIPTION DRUG MANAGEMENT NONE PRESCRIPTIONS WILL INCLUDE SYMPTOMATIC CARE PATIENT'S PRIOR EXTERNAL MEDICAL RECORDS FROM OTHER ER VISITS WERE REVIEWED BY ME INDICATED. PRIOR TESTING AND RESULTS FROM PREVIOUS VISITS WERE REVIEWED. PRIOR TESTS WERE TAKEN INTO ACCOUNT WITH MEDICAL DECISION MAKING AND RESOURCE UTILIZATION, INDEPENDENT HISTORIAN/HISTORIANS WERE USED TO OBTAIN COMPLETE MEDICAL HISTORY. I INDEPENDENTLY INTERPRETED THE TEST THAT WERE PERFORMED, RESULTS WERE REVIEWED BY ME AND CONSIDERED FINDINGS ON RADIOLOGY IF ORDERED. MEDICAL MANAGEMENT AND EXAMINATION INTERPRETATION DISCUSSIONS WERE HAD BY ME WITH OTHER QUALIFIED HEALTHCARE PROFESSIONALS INDICATED FOR THE PATIENT'S CARE. DX & DISP Disposition: Discharge Departure Impression: Primary Impression: Stage 3 chronic kidney disease Additional Impressions: Anemia of chronic renal failure, stage 3b, Weakness Condition: Stable Additional Instructions: FOLLOW-UP WITH PRIMARY CARE PROVIDER IN 1 TO 2 DAYS. TAKE MEDICATIONS DIRECTED HERE IN THE EMERGENCY ROOM. OKAY TO CONTINUE HOME MEDICATIONS UNLESS O THERWISE DISCUSSED DURING YOUR VISIT IN THE EMERGENCY ROOM TODAY. RETURN TO YOUR NEAREST EMERGENCY ROOM IF SYMPTOMS WORSEN OR IF THERE IS NO IMPROVEMENT. CALL 911 IF YOU NEED IMMEDIATE ASSISTANCE. TAKE TYLENOL OR MOTRIN [id number] NEEDED AND IF NO CONTRAINDICATIONS ARE PRESENT. INCREASE ORAL HYDRATION. A WOUND CULTURE OR URINE CULTURE WAS ORDERED HERE IN THE EMERGENCY ROOM DEPARTMENT PLEASE FOLLOW-UP WITH PRIMARY CARE PROVIDER AND ADVISE THEM TO GET REPEAT PORTS FROM OUR FACILITY. IF YOU HAD ANY [place] WRAP/SPLINTS THAT WERE APPLIED HERE, PLEASE DO NOT REMOVE THEM UNTIL YOU SEE YOUR PRIMARY CARE OR SPECIALTY. CONTINUE ALL MEDICATIONS AND TREATMENTS AT HOME, FOLLOW UP WITH IN THE NEXT 2-3 DAYS FOR MANAGEMENT. Referrals: DOMINGO CRAWFORD MD (PCP) RYLIE AMBROCIO NP Apr 07, 2024 12:42
--- NOTE | 2024-04-07 12:59 | EKG ---
[facility] Test Date: 2024-04-07 Test Time: 12:56:50 Pat Name: TERESA KRUEGER Department: ED Room: Gender: M Cover Inspector: [id number] : [id number] Requested By: RYLIE AMBROCIO Order Number: [id number] Reading MD: Jeramy Caro Measurements Intervals [place] Rate: 56 P: 57 SD: 177 QRS: -3 QRSD: 99 T: 31 QT: 449 QTc: 433 Interpretive Statements Sinus rhythm Compared to ECG 12/07/2023 13:03:16 No significant changes Electronically Signed On 04-07-2024 15:48:23 CONTOUR SANDER by Jeramy Caro Please click the below link to view image of tracing.
--- NOTE | 2024-04-07 13:37 | HMCIMG ---
CHEST 1VW REASON: SHORTNESS A BREATH COMPARISON: 12/07/2023 FINDINGS: Single view of the chest was obtained. Lungs are clear. Heart size is normal. There is no pulmonary vascular congestion. Mediastinum and bony thorax appear unremarkable. IMPRESSION: 1. Normal single view chest x-ray.
[2024-04-07 13:41] LABS: CREATININE 2.3 mg/dL (0.5-1.3); MAGNESIUM 1.8 mg/dL (1.80-2.40); POTASSIUM 4.1 mmol/L (3.5-5.1)
[2024-04-07 13:42] LABS: BASOPHILS # (AUTO) 0.06 K/uL (0.00-0.20); BASOPHILS % (AUTO) 1.3 % (0.0-5.0); EOSINOPHILS # (AUTO) 0.17 K/uL (0.00-0.70); EOSINOPHILS % (AUTO) 3.5 % (0.0-8.0); HEMATOCRIT 34.7 % (42-54); IMMATURE GRANULOCYTE ABSOLUTE 0.01 K/uL (0-1); LYMPHOCYTES # (AUTO) 2.5 K/uL (1.0-4.8); LYMPHOCYTES % (AUTO) 52.2 % (21.0-51.0); MEAN CORPUSCULAR HGB CONC 33.7 g/dL (32.0-36.0); MEAN CORPUSCULAR VOLUME 91.8 fL (79-99); MONOCYTES # (AUTO) 0.3 K/uL (0.1-1.0); MONOCYTES % (AUTO) 5.8 % (3.0-13.0); NEUTROPHILS # (AUTO) 1.8 K/uL (1.8-7.7); PLATELET COUNT (AUTO) 108 K/uL (130-400); RED BLOOD CELL COUNT(AUTO) 3.78 MIL/uL (4.50-6.20); WHITE BLOOD COUNT (AUTO) 4.8 K/uL (4.8-10.8)
[2024-04-07 14:02] LABS: B-TYPE NATRIURETIC PEPTIDE 30 pg/mL (0-100)
[2024-04-07 14:38] LABS: ADD UA MICROSCOPIC YES; APPEARANCE,URINE CLEAR (CLEAR); BILIRUBIN,URINE NEGATIVE (NEGATIVE); COLOR,URINE LIGHT-YELLOW (YELLOW); GLUCOSE, URINE (UA) NEGATIVE (NEGATIVE); KETONES,URINE NEGATIVE (NEGATIVE); LEUKOCYTE ESTERASE ,URINE NEGATIVE Leu/uL (NEGATIVE); NITRATE,URINE NEGATIVE (NEGATIVE); OCCULT BLOOD,URINE NEGATIVE (NEGATIVE); PH,URINE 5.5 (5.0-8.0); PROTEIN,URINE 50 mg/dL (NEGATIVE); UROBILINOGEN,URINE 0.2 mg/dL (0.2-1.0)
[2024-04-07 14:40] LABS: MUCUS,URINE RARE LPF (None Seen); RBC,URINE 0-1 /HPF (0-1); SQUAMOUS EPITHELIAL CELL,UR RARE /HPF (0-2); WBC,URINE 0-1 /HPF (0-1)
[2024-04-07 16:00] VITALS: BP 133/69; PULSE 51; RESP 18; TEMP 97.5; O2SAT 96
== END 2024-04-07 16:06 | disposition home or self-care (01) ==
LOC: EDH 12:30
DX: I12.9 Hypertensive chronic kidney disease with stage 1 through stage 4 chronic kidney disease, or unspecified chronic kidney disease (principal); N18.4 Chronic kidney disease, stage 4 (severe); Z99.2 Dependence on renal dialysis; D63.1 Anemia in chronic kidney disease; J44.9 Chronic obstructive pulmonary disease, unspecified; Z79.01 Long term (current) use of anticoagulants; Z79.61 Long term (current) use of immunomodulator; Z79.899 Other long term (current) drug therapy; Z88.0 Allergy status to penicillin; Z20.822 Contact with and (suspected) exposure to COVID-19
CPT/HCPCS: 36415; 71045; 80048; 81001; 83735; 83880; 84484; 85025; 87426; 93005; 99285

== ENCOUNTER 2024-08-14 14:57 | Emergency (ER) | payer OTHER ==
[~2024-08-14] VITALS: Ht 177.8 cm; Wt 97.5 kg
[~2024-08-14 14:57] MED LIST changes: -LEVO200C2 PO; +LEVO200C3 PO; -LEVO50CA4 PO; +LEVO50CA5 PO
--- NOTE | 2024-08-14 15:05 | ERN ---
ED Note History of Present Illness Stated Complaint: DRILLED INTO FINGER Chief Complaint: Finger Injury Time Seen by MD: 15:00 Dictation: PATIENT IS A 63-YEAR-OLD MALE HERE WITH A AN INJURY FROM A DRILL BIT THAT WAS ATTACHED TO A DRILL MOVING 30 MINUTES PRIOR TO ARRIVAL. IT WENT INTO THE DISTAL ASPECT OF THE LEFT 2ND FINGER. DISTALLY NAIL IS INTACT STATES LAST TETANUS SHOT IS UNKNOWN. STATES HE HAS A HISTORY OF ALLERGIES TO PENICILLIN STAGE 4 KIDNEY DISEASE. PATIENT STATES HE IS ON BLOOD THINNERS. AND HAS BEEN TREATED FOR Allergies: Coded Allergies: Penicillins (Unverified Allergy, Unknown, 11/11/19) rosuvastatin (Unverified Allergy, Unknown, 12/24/19) Home Meds Active Scripts Levofloxacin (Levofloxacin) 500 Mg Tablet, 500 MG PO DAILY for 5 Days, #5 TAB Prov:CYRIL DELGADILLO 12/09/23 Ferrous Sulfate (Ferrous Sulfate) 324 Mg (65 Mg Iron) Tablet.dr, 325 MG PO DAILY, #30 TAB 1 Refill Prov:CYRIL DELGADILLO 12/09/23 Reported Medications Lenalidomide (Revlimid) 5 Mg Capsule, 5 MG PO DAILY, CAP 12/08/23 Rivaroxaban (Xarelto) 20 Mg Tablet, 20 MG PO DAILY, TAB 12/08/23 Naloxone HCl (Naloxone HCl) 4 Mg/Actuation [place], 4 MG NS AD, SPRAY 10/06/23 Lenalidomide (Lenalidomide) 5 Mg Capsule, 5 MG PO DAILY, CAP 10/06/23 Olodaterol HCl (Striverdi Respimat) 2.5 Mcg/Actuation Mist.inhal, 2 PUFF IH DAILY 10/06/23 Trazodone HCl (Trazodone HCl) 150 Mg Tablet, 75 MG PO HSPRN, TAB 10/06/23 Sertraline HCl (Sertraline HCl) 150 Mg Capsule, 150 MG PO DAILY, CAP 10/06/23 Levothyroxine Sodium (Levothyroxine) 50 Mcg Capsule, 50 MCG PO ACBKFST, CAP 10/06/23 Levothyroxine Sodium (Levothyroxine) 200 Mcg Capsule, 200 MCG PO ACBKFST, CAP 10/06/23 Pregabalin (Pregabalin) 50 Mg Capsule, 50 MG PO BID, CAP 10/06/23 [Folic Acid 1MG] No Conflict Check, 1 MG PO DAILY 07/07/20 Multivitamin (Multivitamin) 1 Each Tablet, 1 EACH PO DAILY, TAB 02/11/20 Fentanyl (Fentanyl) 1 Each Patch.td72, 50 MCG TD Q72H 02/11/20 [Vitamin B12] No Conflict Check, 1000 MCG PO DAILY 02/11/20 Metoprolol Succinate (Metoprolol Succinate) 50 Mg Tab.er.24h, 25 MG PO DAILY, TAB 02/11/20 Past Medical History Past Medical History: Cancer, COPD, Heart Disease, Hypertension, Renal Disese, Other Additional Past Medical Hx: CKD IV, MULTIPLE MYELOMA, THYROID DISEASE Surgical History: Other Surgical History Other: NECK SX Family History: Negative Social History: Negative RN Note Reviewed/Agreed w/PFSH: Yes Review of System Dictation CONSTITUTIONAL: NEGATIVE EXCEPT FOR HPI HEAD/FACE: NEGATIVE EXCEPT FOR HPI EENT: NEGATIVE EXCEPT FOR HPI RESPIRATORY: NEGATIVE EXCEPT FOR HPI GASTROINTESTINAL/ABDOMINAL: NEGATIVE EXCEPT FOR HPI GENITOURINARY: NEGATIVE EXCEPT FOR HPI MUSCULOSKELETAL: NEGATIVE EXCEPT FOR HPI PUNCTURE WOUND DISTAL LEFT 2ND INTEGUMENTARY: NEGATIVE EXCEPT FOR HPI NEUROLOGICAL/PSYCH: NEGATIVE EXCEPT FOR HPI HEMATOLOGIC/LYMPHATIC: NEGATIVE EXCEPT FOR HPI ALL SYSTEMS NEGATIVE, EXCEPT NOTED ABOVE. 13 POINT REVIEW OF SYSTEMS ASSESSED AND ALL NEGATIVE EXCEPT FOR ABOVE. Initial Vital Sign VS Vital Signs Date Time Temp Pulse Resp B/P (MAP) Pulse Ox O2 Delivery O2 Flow Rate FiO2 08/14/24 14:59 98.2 95 16 178/92 100 Room Air 0 Physical Exam Dictation VITAL SIGNS REVIEWED GENERAL APPEARANCE: ALERT, ORIENTED X 3, NO ACUTE DISTRESS, WELL DEVELOPED, NOURISHED. HEAD AND FACE: NON-TRAUMATIC. EYES: PERRL, PINK CONJUNCTIVAS, EYELID NO TRAUMA, ANTERIOR CHAMBER WITH ARCUS SENILIS. EARS: PINNAS INTACT AND NO SIGNS OF TRAUMA OR ERYTHEMA EAR CANALS CLEAR AND NO DISCHARGE TM NO ERYTHEMA NOSE: NO DISCHARGE, NO BLEEDING. OROPHARYNX: MOUTH NORMAL, TONGUE PINK, PHARYNX CLEAR,NO ERYTHEMA, TONSILS NO EXUDATES, NO ABSCESSES NOTED, MUCOUS MEMBRANE MOIST NECK: SUPPLE, NON-TENDER, NO THYROMEGALY, NO MASSES, NO JVD, NO BRUITS BREAST:DEFERRED CHEST:NO TENDERNESS, NO CREPITUS, NO PARADOXICAL MOVEMENT, NO RETRACTIONS LUNGS:CLEAR, WELL-VENTILATED, SYMMETRIC, NO RALES, NO WHEEZING, NO RHONCHI, NO STRIDOR, GOOD BREATH SOUNDS BILATERALLY HEART: REGULAR RATE, REGULAR RHYTHM, NO MURMUR, NO GALLOPS VASCULAR: NO PERIPHERAL EDEMA, ABDOMEN: SOFT, POSITIVE BOWEL SOUNDS, NONDISTENDED, NO GUARDING, NONTENDER, NO REBOUND, NO MASSES NO HEPATOMEGALY, NO SPLENOMEGALY, NO CORDON'S SIGN, NO HERNIAS. RECTAL: DEFERRED GENITAL: DEFERRED NEUROLOGICAL: NORMAL SPEECH, MOTOR FUNCTION INTACT, SENSORY FUNCTION INTACT MUSCULOSKELETAL: NECK NONTENDER, FULL RANGE OF MOTION, BACK NONTENDER, FULL RANGE OF MOTION, EXTREMITIES: NONTENDER, FULL RANGE OF MOTION PUNCTURE WOUND DISTAL LEFT 2ND FINGER SKIN: COLOR PINK, DRY, NO TURGOR, NO RASH, NO LACERATIONS, NO ABRASIONS, NO CONTUSIONS. LYMPHATIC: DEFERRED NORMAL Results (Laboratory/Radiology) Laboratory/Radiology X-RAY DEMONSTRATES NO BONY INVOLVEMENT Labs Reviewed?: Yes ED Course ED Course Orders Procedure Category Date Status Time Tetanus,Diphtheria PHA 08/14/24 Complete Tox [Adult] (Diphther 15:30 Neomy PHA 08/14/24 Complete Sulf/Bacitra/Polymyxin 15:30 Clindamycin 150mg Cap PHA 08/14/24 Complete (Cleocin 150mg Cap 15:30 Finger(S) 2+Vws Lt RAD 08/14/24 Taken 15:02 Current Medications Medications (Trade) Dose Ordered Sig/Tia Route PRN Reason Start Time Stop Time Status Last Admin Dose Admin Clindamycin HCl (Cleocin 150mg Cap) 600 mg ONCE ONCE PO 08/14/24 15:30 08/14/24 15:31 DC 08/14/24 15:18 Neomycin/ Polymyxin/ Bacitracin (Triple Antibiotic Ointment) 1 appl ONCE ONCE TP 08/14/24 15:30 08/14/24 15:31 DC 08/14/24 15:18 Tetanus/ Diphtheria Toxoids Adsorbed (DiphthERIA-teTANUS TOXOID [ADULT]/ DECAVAC) 0.5 ml ONCE ONCE IM 08/14/24 15:30 08/14/24 15:31 DC 08/14/24 15:19 Vital Signs Date Time Temp Pulse Resp B/P (MAP) Pulse Ox O2 Delivery O2 Flow Rate FiO2 08/14/24 14:59 98.2 95 16 178/92 100 Room Air 0 Medical Decision Making MDM MEDICAL DISCHARGE MAKING BASED ON TETANUS UPDATE FOR PUNCTURE WOUND, X-RAY TO RULE OUT BONY INVOLVEMENT CLINDAMYCIN FOR PROPHYLAXIS PATIENT AWARE THAT X-RAYS NEGATIVE DISCHARGED HOME WITH CLINDAMYCIN FOR PROPHYLAXIS TOLD TO KEEP CLEAN AND DRY AND FOLLOW UP WITH HIS DX & DISP Disposition: Discharge (STRATION SATURDAY) Departure Impression: Primary Impression: Puncture wound of left index finger Condition: Stable Scripts Clindamycin HCl (Clindamycin HCl) 300 Mg Capsule 1 CAP PO QID for 10 Days, #40 CAP 0 Refills Prov: RYLIE AMBROCIO NP 08/14/24 Additional Instructions: FOLLOW-UP WITH PRIMARY CARE PROVIDER IN 1 TO 2 DAYS. TAKE MEDICATIONS DIRECTED HERE IN THE EMERGENCY ROOM. OKAY TO CONTINUE HOME MEDICATIONS UNLESS O THERWISE DISCUSSED DURING YOUR VISIT IN THE EMERGENCY ROOM TODAY. RETURN TO YOUR NEAREST EMERGENCY ROOM IF SYMPTOMS WORSEN OR IF THERE IS NO IMPROVEMENT. CALL 911 IF YOU NEED IMMEDIATE ASSISTANCE. TAKE TYLENOL OR MOTRIN [id number] NEEDED AND IF NO CONTRAINDICATIONS ARE PRESENT. INCREASE ORAL HYDRATION. A WOUND CULTURE OR URINE CULTURE WAS ORDERED HERE IN THE EMERGENCY ROOM DEPARTMENT PLEASE FOLLOW-UP WITH PRIMARY CARE PROVIDER AND ADVISE THEM TO GET REPEAT PORTS FROM OUR FACILITY. IF YOU HAD ANY [place] WRAP/SPLINTS THAT WERE APPLIED HERE, PLEASE DO NOT REMOVE THEM UNTIL YOU SEE YOUR PRIMARY CARE OR SPECIALTY. KEEP PUNCTURE WOUND CLEAN AND DRY. TRIPLE ANTIBIOTIC OINTMENT WITH BAND-AID 3 TIMES A DAY FOR FIVE DAYS. TAKE ANTIBIOTICS DIRECTED UNTIL GONE AND SEE YOUR PRIMARY Referrals: DOMINGO CRAWFORD MD (PCP) Time of Disposition: 16:28 I have reviewed the case, and I agree with, Diagnosis and Plan RYLIE AMBROCIO NP August 14, 2024 15:05
[2024-08-14] MEDS: NEOMY SULF/BACITRA/POLYMYXIN B 1 EACH PACKET TP ONE (15:18)
[2024-08-14] MEDS: CLINDAMYCIN 150 MG CAP PO ONE (15:18)
[2024-08-14] MEDS: teTANUS/diphthERIA TOXOID [ADULT] 0.5 ML VIAL IM ONE (15:19)
[2024-08-14] MEDS ORDERED: CLIN-141 PO (16:28)
--- NOTE | 2024-08-14 16:29 | HMCIMG ---
Exam Type: FINGER(S) 2+VWS LT Clinical Information: PUNCTURE WOUND WITH DRILL BIT LEFT 2ND FINGER Comparison: None Findings: The bone examination is unremarkable. No fractures or dislocations are seen. No radiopaque foreign bodies are noted. Soft tissues are preserved. IMPRESSION: Normal examination.
[2024-08-14 16:40] VITALS: BP 161/88; PULSE 88; RESP 16; TEMP 98.3; O2SAT 100
== END 2024-08-14 16:49 | disposition home or self-care (01) ==
LOC: EDH 14:57
DX: S61.231A Puncture wound without foreign body of left index finger without damage to nail, initial encounter (principal); I12.9 Hypertensive chronic kidney disease with stage 1 through stage 4 chronic kidney disease, or unspecified chronic kidney disease; N18.4 Chronic kidney disease, stage 4 (severe); J44.9 Chronic obstructive pulmonary disease, unspecified; Z79.01 Long term (current) use of anticoagulants; Z79.61 Long term (current) use of immunomodulator; Z79.899 Other long term (current) drug therapy; Z88.0 Allergy status to penicillin; X58.XXXA Exposure to other specified factors, initial encounter; Y93.89 Activity, other specified; Y92.89 Other specified places as the place of occurrence of the external cause; Y99.8 Other external cause status
CPT/HCPCS: 73140; 90471; 90714; 99283

== ENCOUNTER → 2024-11-27 | Outpatient (CLI) | payer OTHER ==
[~2024-11-27] MED LIST changes: +CLIN-141 PO
[2024-11-27] MEDS: REGADENOSON 0.4 MG/5 ML PF SYG IVP ONE (11:40)
--- NOTE | 2024-11-27 13:38 | HMCSR ---
APPROVED REPORT Height: 5 ft 9in Weight: 225 lbs TEST INDICATIONS CAD The imaging protocol used to acquire images was Rest Tc-99m/stress Tc-99m 1 day Consent: The procedure was explained and understood by the patient. Informerd consent was witnessed Magda Okeefe RN First, low dose rest was performed then high dose stress. RESTING DATA: The resting ekg shows: NSR Rest SPECT myocardial perfusion imaging was performed in supine position minutes following the intra venous injection of 11 mCi of Tc-99 Sestamibi. Time of rest injection: Date: 11/27/2024 Time of rest imaging: Date: 11/27/2024 PHARMACOLOGIC STRESS: Pharmacologic stress test was performed by injecting regadenoson 0.4 mg IV push followed by the intra venous injection of 30 mCi of Tc-99 Sestamibi. Time of stress injection: Date: 11/27/2024 Time of stress imaging: Date: 11/27/2024 Heart Rate at time of stress injection: 52 bpm. The images were gated to evaluate regional wall motion and calculate left ventricular ejection fracti on. STRESS DETAILS Reason for Termination: Infusion complete Stress Symptoms: Dyspnea, Nausea, Stomach Pain Max HR Achieved: 76 bpm % of APMHR Achieved: 57 Max Blood Pressure: 136/64 mmHg Stress ECG: NSR Conclusion No ischemia Fixed inferior defect consistent with diaphragm attenuation artifact Normal LV wall motion LV ejection fraction 645 Normal LV size at rest and stress No increased lung uptake
== END | disposition home or self-care (01) ==
LOC: RAH 09:35
PROVIDERS: ATTEND Internal Medicine Cardiovascular Disease
DX: I25.10 Atherosclerotic heart disease of native coronary artery without angina pectoris (principal)
CPT/HCPCS: 78452; 93017; J2785; A9500 ×2